=== PATIENT | female | born 1995 | race Caucasian/White ===

== ENCOUNTER 2021-02-09 19:42 | Outpatient (CLI) | payer BC, SELFPAY ==
[2021-02-09 19:59] VITALS: TEMP 36.7
[2021-02-09 20:00] VITALS: BP 116/67; PULSE 72; TEMP 36.6
[2021-02-09 20:44] LABS: ROM Internal Control Test YES-OK TO RESULT pt. (Internal QC)
[2021-02-09 20:46] VITALS: BMI 24.0
[2021-02-09 21:04] LABS: ROM Patient Test Negative (Negative)
--- NOTE | 2021-02-10 10:50 | OB.TRI.HP_ITS ---
History of Present Illness Date of Service: 02/09/21 Was patient seen by the physician?: No Reason For Visit: R/O RUPTURE Date of Service: 02/09/21 Final JUDY: 04/17/21 Final JUDY Source: US <20 weeks Gestational age: 30 Weeks and 4 Days Allergies bee pollen Allergy (Verified 02/09/21 20:49) Hives Laboratory Studies: Laboratory Tests 02/09/21 Range/Units 20:35 Vag Amniotic Fld Detect Negative (Negative) Physical Exam Vitals: Vital Signs Temp Pulse BP 97.8 F 72 116/67 02/09/21 20:00 02/09/21 20:00 02/09/21 20:00 NST - FHR Rate Baby A Baseline: 130 Variability:: Moderate Accelerations:: 15 x 15 Decelerations:: None NST Reactive:: Yes FHR Category:: Category I Uterine Activity:: irritability Impression/Plan 5-year-old 1 para 0 at 30 weeks 3 days for rule out rupture membranes. ROM plus is negative. heart tones are category 1. Tocometer shows some mild irritability. Okay to discharge home with routine instructions and follow- up.
--- NOTE | 2021-10-04 10:18 | PCM.HP.BLA ---
History and Physical Date of Admission: 10/07/21 Pre-Op History and Physical ? HPI: The patient is a 30 year old female presenting for pre-operative visit. She is scheduled for and salpingectomy, for breech, 39 weeks, GDMA1 on 10/07/21. Procedure discussed along with risks, benefits and complications. Other alternatives discussed for management. Consent form signed? Yes. ? ? PAST MEDICAL HISTORY PAST MEDICAL HISTORY Diagnosis Date ? Gestational diabetes mellitus (GDM) in second trimester 07/14/2021 ? depression ? ? Pre-eclampsia ? ? ? PAST SURGICAL HISTORY PAST SURGICAL HISTORY Procedure Laterality Date ? CYST EXCISION Right 04/13/2018 ? gangling ? ? ? CURRENT MEDICATIONS Current Outpatient Medications Medication Sig Dispense Refill ? blood sugar diagnostic test strip 1 Strip four times daily. Use as instructed 120 Strip 9 ? Lancets lancets 1 Each four times daily. Use as instructed 120 Each 9 ? Urine Glucose-Ketones Test (KETO-DIASTIX) strp 1 Strip four times daily. 120 Strip 9 ? aspirin, enteric coated (ASPIRIN, ENTERIC COATED) 81 mg EC tablet Take 81 mg by mouth once daily. ? ? ? doxylamine succinate (UNISOM, DOXYLAMINE, ORAL) Take by mouth. ? ? ? PNV62/FA/OM3/DHA/EPA/FISH OIL ( GUMMY ORAL) Take by mouth as directed. ? ? ? No current facility-administered medications for this visit. ? ? ALLERGIES: Patient has no known allergies. ? PERSONAL HISTORY: SOCIAL HISTORY Social History ? Tobacco Use ? Smoking status: Never Smoker ? Smokeless tobacco: Never Used Vaping Use ? Vaping Use: Never used Substance Use Topics ? Alcohol use: No ? Drug use: No ? FAMILY HISTORY: FAMILY HISTORY FAMILY HISTORY Problem Relation Age of Onset ? No Known Problems Mother ? ? Ischemic Heart Disease Father ? ? 04/2011 ? No Known Problems Sister ? ? other (Other) Sister ? ? Autoimmune Hepavirus Disease ? Macular Degen Maternal Grandmother ? ? Cancer Maternal Grandfather ? ? melanoma, colon cancer ? Aneurysm Paternal Grandmother ? ? Diabetes Paternal Grandmother ? ? Ischemic Heart Disease Paternal Grandfather ? ? Cancer Paternal Grandfather ? ? Hypertension Paternal Grandfather ? ? No Known Problems Son ? ? ? REVIEW OF SYMPTOMS: negative except as noted above PHYSICAL EXAMINATION: ? VITALS: Blood pressure 130/76, weight 179 lb (81.2 kg), last menstrual period 12/30/2020, currently . ? GENERAL: The patient is well nourished, well hydrated in no acute distress. , The patient is oriented to time, place, and person. NECK: full range of motion Abdomen: gravid, non tender. FHR 140s. ? IMPRESSION: 39 weeks, Breech, GDMA1 , desires sterilization ? PLAN: C/S and Bilateral salpingectomy ? Pt has been counseled on risks/benefits and alternatives of surgery including but not limited to anesthesia, bleeding, infection, injury to pelvic structures including bowel, bladder, ureters and vessels. Pt wishes to proceed with surgery at this time. Pt understands salpingectomy is permanent. Cs pre and post op consent signed. ? ? I have reviewed and updated past medical and surgical history, medications and allergies Raven Werner MD ?4:52 PM Routine Office Visit on 09/30/2021 Routine Office Visit on 09/30/2021 Note shared with patient
== END 2021-02-09 21:40 | disposition home or self-care (01) ==
LOC: WPOUT 19:47 → WP 19:51
PROVIDERS: PCP Family Medicine; Visit Provider Obstetrics & Gynecology
DX: O60.03 Preterm labor without delivery, third trimester (principal); Z3A.30 30 weeks gestation of pregnancy
CPT/HCPCS: 59025; 59050; 84112; 99218; G0378

== ENCOUNTER 2021-04-21 03:25 | Inpatient (IN) | payer BC, SELFPAY ==
[2021-04-21] VITALS (92 sets, daily range): BP systolic 91–178; BP diastolic 51–96; PULSE 57–163; RESP 16–18; TEMP 36.5–37.1; O2SAT 83–100; BMI 27.0
[2021-04-21] MEDS: Lactated Ringers 1,000 ML 50 ML IV (04:10)
[2021-04-21 04:26] LABS: Absolute Lymphocyte Count 2.22 X10^3/uL (0.83-4.51); Absolute Neutrophil Count 10.4 X10^3/uL (2.0-7.7); Basophil# 0.04 X10^3/uL; Basophil% 0.3 % (0-1); Eosinophil# 0.04 X10^3/uL; Eosinophils% 0.3 % (0-5); Hematocrit 38.7 % (37-47); Hemoglobin 12.9 g/dL (12.0-15.0); Lymphocyte # 2.22 X10^3/ul (0.83-4.51); Lymphocyte % 16.3 % (19-41); Mean Corp Hgb Conc 33.3 g/dL (32-36); Mean Corpuscular Hgb 29.1 pg (27.0-32.0); Mean Corpuscular Volume 87.2 fL (81-99); Mean Platelet Vol. 11.3 fl (6.2-12.0); Monocyte# 0.78 X10^3/uL; Monocyte% 5.7 % (0-10); NRBC Flagged by Analyzer 0 % (0-5); Neutrophil # 10.37 X10^3/uL (2.7-7.7); Neutrophil % 76.1 % (47-70); Platelet Count 204 K/mm3 (150-450); RBC Distribution Width CV 13.3 % (11.6-14.6); RBC Distribution Width SD 42.2 fl (35.1-43.9); Red Blood Count 4.44 M/mm3 (4.2-5.4); White Blood Count 13.6 K/mm3 (4.4-11.0)
[2021-04-21] MEDS: Lactated Ringers 500 ML 999 ML IV ×2 (05:00→07:16)
--- NOTE | 2021-04-21 05:15 | PCM.HP.OB ---
HPI - General General Date of Admission: 04/21/21 HPI Narrative RAMBO [place], is a 25 F who presents to triage with contractions. Patient stated she has been having contractions since yesterday and they have began to increase in strength and frequency. Denies any loss of fluid or vaginal bleeding. Positive movement. Maternal Data Information JUDY Calculator Estimated Delivery Date Method Current WG Current Estimate 04/17/21 Manual 40w 4d PFSH PFSH Medical History Asthma Asthma Home Medications vit,[id number] 1 tablet PO DAILY 02/09/21 [History Last Taken 04/20/21 09:00] Allergy/AdvReac Type Severity Reaction Status Date / Time bee pollen Allergy Hives Verified 04/21/21 01:05 Surgical History History of surgery Social History Smoking Status: Former smoker History Elective abortions Hx Para 0 Spontaneous abortions Hx # Term Pregnancies Ectopic pregnancies Hx # Pregnancies Multiple births # of living children NST FHR Rate Baby A Baseline: 135 Variability:: Moderate Accelerations:: 15 x 15 Decelerations:: None NST Reactive:: Yes FHR Category:: Category I Uterine Activity:: irregular ROS Eyes Eyes: Denies blurry vision, change in vision or spots in vision ENT HEENT: Denies dizziness or headache(s) Cardiovascular Cardiovascular: Denies abdominal pain, chest pain or dyspnea Respiratory/Chest Respiratory/Chest: Denies cough, dyspnea, shortness of breath at rest or shortness of breath with exertion Gastrointestinal Gastrointestinal: Denies abdominal pain, diarrhea or vomiting Genitourinary Genitourinary: Denies change in urinary stream, difficulty urinating or dysuria Musculoskeletal Musculoskeletal: Reports none Integumentary Integumentary: Denies rash Neurologic Neurologic: Denies dizziness, headache(s), memory loss or weakness Psychiatric Psychiatric: Reports none Vital Signs Vital Signs Vital Signs: 04/21/21 00:56 04/21/21 01:01 04/21/21 01:13 Temperature Temperature Source Pulse Rate 163 H 71 71 Blood Pressure 136/87 H 142/90 H BP Systolic 136 142 BP Diastolic 87 90 Pulse Ox 83 04/21/21 04:17 04/21/21 04:48 04/21/21 05:00 Temperature 97.7 F L Temperature Source Temporal Pulse Rate 75 69 Blood Pressure 150/96 H 146/88 H BP Systolic 150 146 BP Diastolic 96 88 Pulse Ox 98 04/21/21 05:37 04/21/21 05:42 04/21/21 05:43 Temperature Temperature Source Pulse Rate 83 87 90 Blood Pressure 158/81 H BP Systolic 158 BP Diastolic 81 Pulse Ox 100 100 04/21/21 05:46 04/21/21 05:47 04/21/21 05:51 Temperature Temperature Source Pulse Rate 77 78 85 Blood Pressure 149/93 H 141/75 H BP Systolic 149 141 BP Diastolic 93 75 Pulse Ox 100 04/21/21 05:53 04/21/21 05:54 04/21/21 05:58 Temperature Temperature Source Pulse Rate 85 85 78 Blood Pressure 124/59 H BP Systolic 124 BP Diastolic 59 Pulse Ox 100 100 04/21/21 05:59 04/21/21 06:01 04/21/21 06:03 Temperature Temperature Source Pulse Rate 82 77 78 Blood Pressure 114/57 L 128/61 H BP Systolic 114 128 BP Diastolic 57 61 Pulse Ox 100 04/21/21 06:06 04/21/21 06:08 04/21/21 06:11 Temperature Temperature Source Pulse Rate 81 79 77 Blood Pressure 126/60 H 125/60 H BP Systolic 126 125 BP Diastolic 60 60 Pulse Ox 100 04/21/21 06:12 04/21/21 06:13 04/21/21 06:16 Temperature Temperature Source Pulse Rate 75 80 Blood Pressure 128/60 H 122/74 H BP Systolic 128 122 BP Diastolic 60 74 Pulse Ox 100 04/21/21 06:18 04/21/21 06:21 04/21/21 06:23 Temperature Temperature Source Pulse Rate 78 75 77 Blood Pressure 114/58 L BP Systolic 114 BP Diastolic 58 Pulse Ox 100 100 04/21/21 06:26 04/21/21 06:28 04/21/21 06:32 Temperature Temperature Source Pulse Rate 77 80 Blood Pressure 163/75 H 116/67 BP Systolic 163 116 BP Diastolic 75 67 Pulse Ox 100 04/21/21 06:33 04/21/21 06:54 04/21/21 07:14 Temperature Temperature Source Pulse Rate 80 76 69 Blood Pressure 114/70 104/54 L BP Systolic 114 104 BP Diastolic 70 54 Pulse Ox 100 Weight Weight: 167 lb 6.4 oz Body Mass Index (BMI) 27.0 Physical Exam Const alert, oriented x3 and no apparent distress General Appearance: cooperative Orientation / Consciousness: awake Exam Limitations: no limitations HEENT normocephalic Head and Scalp: normal to inspection Eyes General Eye: normal appearance of both eyes Neck full ROM and no lymphadenopathy Lymph Lymphatic: no lymphadenopathy noted Chest inspection of chest normal Resp normal respiratory effort, normal air movement and clear to auscultation bilaterally Effort and Inspection: able to speak in complete sentences and symmetric chest movement Cardio regular rate and regular rhythm GI normal to inspection, nondistended, normoactive bowel sounds Manual OB Exam: dilated 5, effaced 90 and station -2 Back/Spine normal ROM Extremity full ROM and no calf tenderness Skin no rashes or lesions noted General Skin Exam: no breakdown Neuro oriented x3 and CN's II-XII intact bilaterally Psych mental status grossly normal and thought process normal Labs Labs Labs: Blood Type A POSITIVE Antibody Screen NEGATIVE Hct 38.7 % (37-47) Hgb 12.9 g/dL (12.0-15.0) Assessment & Plan (1) 40 weeks gestation of : (2) Spontaneous onset of labor: PLAN: Admit to labor and delivery GBS negative Draw PIH labs due to elevated BP's Routine labs and IV fluids Epidural when indicated Dr. Gunn notified of admission and is collaborating physician
[2021-04-21 05:17] LABS: Amphetamine Urine VISTA NEGATIVE (<1000 ng/mL); Barbiturate Urine VISTA NEGATIVE (< 200 ng/mL); Benzodiazepine Urine VISTA NEGATIVE (< 200 ng/mL); Cocaine Urine VISTA NEGATIVE (< 300 ng/mL); Ecstacy Urine VISTA NEGATIVE (< 500 ng/mL); Methadone Urine VISTA NEGATIVE (< 300 ng/mL); PCP Urine VISTA NEGATIVE (< 25 ng/mL); THC Urine VISTA NEGATIVE (< 50 ng/mL); Vista UDS pH Range 6
[2021-04-21 05:28] LABS: International Normalized Ratio 0.9; Prothrombin Time (Protime)PT. 11.4 SECONDS (11.7-14.9)
[2021-04-21 05:29] LABS: Partial Thromboplast Time 30.1 Seconds (24.1-36.2)
[2021-04-21 05:33] LABS: AST(SGOT) 24 U/L (15-37); Alanine Aminotransfer ALT/SGPT 31 U/L (13-56); Creatinine, Serum 0.89 mg/dL (0.55-1.02); EST Glomerular Filtration Rate 81 mL/min (>60); Est Glom Filt Rate - Afr Amer 98 mL/min (>60); Estimated Creatinine Clearance 88.89 ml/min; Protein, Urine (Random) 13.5 mg/dL (<11.9); Protein:Creat Ratio 231 mg/g CRE (0-200); Uric Acid 6.9 mg/dL (2.6-6.0)
[2021-04-21] MEDS: fentaNYL-bupivacaine (epidural) 100 ML BAG EPIDURAL ×2 (05:54→11:30)
[2021-04-21] MEDS: Oxytocin 30 units/NS 500 ml 30 UNITS/500 ML IV.SOLN IV (09:28)
[2021-04-21] MEDS: Lactated Ringers 1,000 ML 200 ML IV (09:30)
[2021-04-21] MEDS: DiphenhydrAMINE 50 MG/ML Syringe IV (11:17)
[2021-04-21] MEDS: Oxytocin 30 units/NS 500 ml 30 UNITS/500 ML IV.SOLN 334 UNITS IV (13:55)
--- NOTE | 2021-04-21 14:45 | EX.PCM.OBRPT ---
Assessment & Plan (1) (spontaneous vaginal delivery): (2) Laceration, obstetrical, second degree: Maternal Data Information JUDY Calculator Estimated Delivery Date Method Current WG Current Estimate 04/17/21 Manual 40w 4d Vaginal Delivery Maternal Presentation Maternal Presentation: Active Labor Maternal Presentation: Patient is a that presented to unit in spontaneous, active labor. Operative Information Date of Procedure: 04/21/21 Pre-Operative Diagnosis: Spontaneous, active labor Post-Operative Diagnosis: Same, live female Surgery / Procedure Performed: Spontaneous Vaginal Delivery Type of Anesthesia: Epidural Drain: Gallagher to straight drain Estimated Blood Loss: 250 Time of Delivery: 13:53 Findings Description of Procedure: Patient feeling pressure and found to be complete dilation +1 station. Pushing good with contractions. Infant head delivered with minimal maternal effort followed by posterior, anterior shoulder and remainder of . Vigorous female placed on maternal abdomen and was attended to by nursing. Pitocin IV started for active phase of labor. 3 vessel cord clamped and cut by FOB after 2 minute delay. Placenta intact and delivered via Edwards mechanism. Second degree laceration repaired in usual fashion using 3-0 Vicryl Rapide. Hemostasis obtained. Fundus firm 2 below U. EBL 250cc APGARS 9/9. Patient bonding with . Planning on . Dr. Hunter notified of delivery. Presentation: Vertex Amniotic Membrane Rupture Type: Artificial Time of Membrane Rupture: 724 Amniotic Fluid Description: Clear (Terminal meconium at delivery) Placental Delivery Description: Spontaneous Placenta Disposition: [facility] Cord Vessel Description: 3 Vessels Cord Entanglement: None A Gender: Female (1 minute): 9 (5 minute): 9 Delayed Cord Clamping: Yes Post Vaginal Delivery Medications Given After Delivery: IV Pitocin Episiotomy Description: None Laceration: 2nd degree Complication Complications: None
[2021-04-21] MEDS: Acetaminophen 500 MG Tablet 1000 MG PO (15:26)
[2021-04-21] MEDS: 0.9% Saline Lock 10 ML Syringe IV (17:05)
[2021-04-21] MEDS: Naproxen 500 MG Tablet PO (20:08)
[2021-04-21] MEDS: Benzocaine/Lanolin/Aloe Vera 1 SPRAY EACH TOPICAL (20:08)
[2021-04-22] VITALS (8 sets, daily range): BP systolic 118–138; BP diastolic 66–83; PULSE 66–74; RESP 16–18; TEMP 36.4–37.1; O2SAT 98–99
[2021-04-22] MEDS: Acetaminophen 500 MG Tablet 1000 MG PO ×2 (00:10→07:48)
--- NOTE | 2021-04-22 07:20 | PCM.PN.OB ---
Subjective Subjective Patient seen at bedside. Resting with . going good. Ambulating and voiding without difficulty. Mild headache, no visual changes, or SOB, CP. Discussed possible discharge home later today if BP remains stable. Objective Data Objective Data Vital Signs: Vital Signs Temp Pulse Resp BP Pulse Ox 98.7 F 66 16 124/81 H 99 04/22/21 03:50 04/22/21 03:50 04/22/21 03:50 04/22/21 03:50 04/21/21 15:28 Oxygen Delivery Method Room Air Weight: 167 lb 6.4 oz Body Mass Index (BMI) 27.0 Intake & Output: Intake and Output for Last 24 Hours 04/20/21 04/21/21 04/22/21 23:59 23:59 23:59 Intake Total 3381.28 / 3381.28 Output Total 2775 / 3225 450 / 450 Balance 606.28 / 156.28 -450 / -450 Lab / Micro Data Result Diagrams: 04/21/21 04:10 04/21/21 04:10 ROS Eyes Eyes: Denies blurry vision, change in vision or spots in vision ENT HEENT: Denies dizziness or headache(s) Cardiovascular Cardiovascular: Denies abdominal pain, chest pain or dyspnea Respiratory/Chest Respiratory/Chest: Denies cough, dyspnea, shortness of breath at rest or shortness of breath with exertion Gastrointestinal Gastrointestinal: Denies abdominal pain, diarrhea or vomiting Genitourinary Genitourinary: Denies change in urinary stream, difficulty urinating or dysuria Musculoskeletal Musculoskeletal: Reports none Integumentary Integumentary: Denies rash Neurologic Neurologic: Reports headache(s); Denies dizziness, memory loss or weakness Psychiatric Psychiatric: Reports none Physical Exam Const alert and no apparent distress General Appearance: cooperative and comfortable Exam Limitations: no limitations HEENT normocephalic Eyes General Eye: normal appearance of both eyes Neck full ROM General: normal visual inspection Chest Chest: symmetrical chest wall rise Resp normal respiratory effort and normal air movement Effort and Inspection: symmetric chest movement Auscultation: clear to auscultation bilaterally Cardio regular rate and regular rhythm GI normal to inspection, nondistended, normoactive bowel sounds Back/Spine normal ROM Extremity full ROM and no calf tenderness General Extremity: normal exam except as noted Skin no rashes or lesions noted Neuro CN's II-XII intact bilaterally Psych mental status grossly normal Assessment & Plan (1) (spontaneous vaginal delivery): (2) Laceration, obstetrical, second degree: PLAN: PPD 1 Routine care BP monitoring and nurse to report any elevated levels support Anticipate discharge home later today or tomorrow AM
--- NOTE | 2021-04-22 07:43 | NURSING ---
At 0730 pt reports having 3 raised, itchy places on right upper abdomen. CPlotts CNM notified by this RN.
[2021-04-22] MEDS: 0.9% Saline Lock 10 ML Syringe IV (07:48)
[2021-04-22] MEDS: Naproxen 500 MG Tablet PO (11:21)
--- NOTE | 2021-04-22 17:48 | PCM.PROGNOTE ---
Subjective Subjective Doing well per patient and nursing staff. Ambulating and taking PO without difficulty. Voiding and passing flatus. Pain controlled. , services for assistance. Denies headache, visual changes, chest pain, shortness of breath, leg pain or increased bleeding. Lochia normal. Objective Data Objective Data Vital Signs: Vital Signs Temp Pulse Resp BP Pulse Ox 98.1 F 72 16 138/83 H 98 04/22/21 15:22 04/22/21 15:52 04/22/21 15:22 04/22/21 15:52 04/22/21 11:25 Oxygen Delivery Method Room Air Weight: 167 lb 6.4 oz Body Mass Index (BMI) 27.0 Intake & Output: Intake and Output for Last 24 Hours 04/20/21 04/21/21 04/22/21 23:59 23:59 23:59 Intake Total 3381.28 / 3381.28 Output Total 2775 / 3225 450 / 450 Balance 606.28 / 156.28 -450 / -450 Lab / Micro Data Result Diagrams: 04/21/21 04:10 04/21/21 04:10 Physical Exam Const alert and oriented x3 General Appearance: cooperative Orientation / Consciousness: awake, oriented to person, oriented to place and oriented to time Exam Limitations: no limitations HEENT normocephalic Head and Scalp: normal to inspection, normocephalic and atraumatic Face and Sinus: normal facial exam Eyes General Eye: normal appearance of both eyes Neck full ROM Chest Chest: symmetrical chest wall rise Resp normal respiratory effort and normal air movement Auscultation: clear to auscultation bilaterally Cardio regular rate, regular rhythm, S1 normal heart sound, S2 normal heart sound, no murmurs, no rub, no gallops and no clicks GI normal to inspection, nondistended, normoactive bowel sounds and non-tender GI Narrative: fundus firm 2 below U appearance of the vagina normal Bladder / Kidney Exam: no CVA tenderness Back/Spine normal ROM Extremity normal to inspection and full ROM Extremity Narrative: Winnie's negative bilaterally. No edema. +2/4 bilateral patellar, no clonus Skin no rashes or lesions noted Neuro oriented x3, CN's II-XII intact bilaterally and moves all extremities Sensorium / Orientation: awake, alert and oriented to person Motor Exam: clonus absent Deep Tendon Reflexes: Rt Patellar (L4): 2+ and Lt Patellar (L4): 2+ Assessment & Plan Assessment/Plan (1) Laceration, obstetrical, second degree: (2) (spontaneous vaginal delivery): PLAN: 1) Routine PP and instructions 2) Ibuprofen for pain management, will use OTC 3) BP mildly elevated, recommended patient stay, patient informed refusal and asking to be discharged. Reviewed taking BP BID and recording. Preeclampsia signs reviewed and when to call. Will follow up in 4 days in office for blood pressure check. 4) D/C home
--- NOTE | 2021-04-22 17:51 | DS.PCM_ITS ---
Providers Date of Admission: 04/21/21 Primary Care Physician: Dr. Ankit Huber MD Reason For Visit: VAG DELIVERY Diagnosis Discharge Diagnosis (1) Laceration, obstetrical, second degree: Status: Acute Code(s): O70.1 - Second degree perineal laceration during delivery (2) (spontaneous vaginal delivery): Status: Acute Code(s): O80 - Encounter for full-term uncomplicated delivery Medications at Discharge Home Medications vit,[id number] 1 tablet PO DAILY 02/09/21 naproxen 500 mg PO Q8H PRN PRN #0 tab 04/22/21 Weight / BMI Weight Weight: 167 lb 6.4 oz Body Mass Index (BMI) 27.0 ABG / Lab / Microbiology Data Result Diagrams: 04/21/21 04:10 04/21/21 04:10 D/C Instructions Discharge Diet: No restrictions Discharge Activity: May Drive, May Shower and May Take a Tub Bath May resume sexual activity in: 6 weeks Weight Bearing Status: Full weight bearing Lifting Restricted to (Lbs): 50 Call your doctor if your incision/area has: Sudden Increased Bleeding, Increased Pain/ Swelling, Increased Redness and Foul Smelling Discharge Call your doctor if you observe: Fever of 101 or Higher, Inability to urinate, Inability to have a bowel movement, Using more than 1 pad per hour, Shortness of breath, Dizziness, Fainting spells, Chest pain, Increased palpitations (irregular heartbeat), Calf discomfort and Uncontrolled pain Suture Line Care: Avoid Pulling/Pushing Additional Instructions: Take blood pressure twice a day, sitting with legs flat on floor after 15 minutes of rest. Record blood pressure. Follow up in 4 days in office. If blood pressure is increasing or blood pressure is 160/110 (either number elevated), please call office during office hours or [facility] after hours. Call if any headache, visual changes, pain in the abdomen on the right side or any concerns. Please Follow Up With: Lucille Higuera CNM Meaningful Use Info Meaningful Use Diagnoses (Choose all that apply): None applicable Discharge Plan Admission Admit Date/Time: 04/21/21 03:25 Primary Reason for Your Visit: vaginal delivery Attending Provider: Arianna Hernandez Primary Care Provider: Ankit Huber Instructions Patient Instructions: After a Vaginal , Understanding Preeclampsia, Breast Care After , : Caring for Yourself Discharge Orders/Prescriptions Prescriptions: New naproxen 500 mg Tablet 500 mg PO Q8H PRN PRN (Reason: Pain Score 1-3) Qty: 0 RF: 0 Continued vit,[id number] 1 TABLET tablet 1 tablet PO DAILY RF: 0 Referrals / Follow Up: Ankit Huber MD [Primary Care Provider] - Arianna Hernandez CNM [Certified Nurse Coding Support Specialist] - (follow up 04/26/21 for blood pressure check, follow up in 2 weeks for virtual visit, follow up in 6 weeks for inperson visit) Disposition Disposition (needs filled in before D/C Order can be placed): Home, Self Care
== END 2021-04-22 18:20 | disposition home or self-care (01) | DRG 807 ==
LOC: WPOUT 03:26 → WP 03:26
PROVIDERS: Admitting Provider Advanced Practice Midwife; PCP Family Medicine; Visit Provider Advanced Practice Midwife
DX: O70.1 Second degree perineal laceration during delivery (principal); Z37.0 Single live birth; O77.0 Labor and delivery complicated by meconium in amniotic fluid; J45.909 Unspecified asthma, uncomplicated; Z87.891 Personal history of nicotine dependence; Z3A.40 40 weeks gestation of pregnancy
CPT/HCPCS: 59025; 59050; 80307; 82565; 82570; 84156; 84450; 84460; 84550; 85025; 85610; 85730; 86850; 86900; 86901; 99218; J7120; A4216; G0378

== ENCOUNTER → 2023-05-15 | Outpatient (CLI) | payer BC, SELFPAY ==
[2023-05-15 17:04] LABS: Absolute Lymphocyte Count 2.84 X10^3/uL (0.83-4.51); Absolute Neutrophil Count 7.8 X10^3/uL (2.0-7.7); Basophil# 0.03 X10^3/uL; Basophil% 0.3 % (0-1); Eosinophil# 0.08 X10^3/uL; Eosinophils% 0.7 % (0-5); Hemoglobin 12.2 g/dL (12.0-15.0); Lymphocyte # 2.84 X10^3/ul (0.83-4.51); Lymphocyte % 25.1 % (19-41); Mean Corp Hgb Conc 33.9 g/dL (32-36); Mean Corpuscular Hgb 29.5 pg (27.0-32.0); Mean Platelet Vol. 9.3 fl (6.2-12.0); Monocyte# 0.52 X10^3/uL; Monocyte% 4.6 % (0-10); NRBC Flagged by Analyzer 0 % (0-5); Neutrophil # 7.77 X10^3/uL (2.7-7.7); Neutrophil % 68.8 % (47-70); Platelet Count 252 K/mm3 (150-450); RBC Distribution Width CV 12.7 % (11.6-14.6); RBC Distribution Width SD 40.7 fl (35.1-43.9); Red Blood Count 4.14 M/mm3 (4.2-5.4); White Blood Count 11.3 K/mm3 (4.4-11.0)
[2023-05-15 18:21] LABS: HIV - WCH Non-Reactive (Nonreactive); Hepatitis B Surface Antigen Non-Reactive (Nonreactive); Hepatitis C Antibody Non-Reactive (Nonreactive); Rubella IgG Reactive (Nonreactive); Syphilis Antibodies Non-reactive
[2023-05-17 08:08] LABS: V-Zoster IgG (Immunity) 1236 index (Immune >165)
== END | disposition home or self-care (01) ==
PROVIDERS: PCP Family Medicine; Visit Provider Student in an Organized Health Care Education/Training Program
DX: Z34.81 Encounter for supervision of other normal pregnancy, first trimester (principal)
CPT/HCPCS: 36415; 85025; 86703; 86762; 86780; 86787; 86803; 86850; 86900; 86901; 87086; 87340

== ENCOUNTER → 2023-05-18 | Outpatient (CLI) | payer BC, SELFPAY | END | disposition home or self-care (01) | PROVIDERS: PCP Family Medicine; Visit Provider Nurse Practitioner Women's Health | DX: Z34.81 Encounter for supervision of other normal pregnancy, first trimester (principal) ==

== ENCOUNTER → 2023-06-09 | Outpatient (CLI) | payer BC, SELFPAY ==
[2023-06-13 11:09] LABS: HPV APTIMA, High Risk Negative (Negative)
== END | disposition home or self-care (01) ==
PROVIDERS: PCP Family Medicine; Visit Provider Obstetrics & Gynecology
DX: Z12.4 Encounter for screening for malignant neoplasm of cervix (principal)
CPT/HCPCS: 87624; 88175; G0145

== ENCOUNTER → 2023-07-10 | Outpatient (CLI) | payer BC, SELFPAY ==
--- NOTE | 2023-07-10 15:20 | US_ITS ---
STUDY: SECOND AND THIRD TRIMESTER OBSTETRICAL ULTRASOUND REASON FOR EXAM: Female, 27 years old anatomy LMP: 02/17/2023 TECHNIQUE: Transabdominal TECHNICAL QUALITY: Adequate. PRIOR ULTRASOUND: None. FINDINGS: There is a single intrauterine fetus. The fetus is in a variable presentation. There is demonstrated cardiac activity with a heart rate of 160 bpm. There is a normal amniotic fluid volume. The largest amniotic fluid pocket measures 4.1. The placenta is posterior in location and is not low lying. There are Grade 2 placental changes. The cervix measures 4.3 cm in length. The adnexal regions are not visualized. BIOMETRY: BPD: 4.5: 19 weeks, 5 days HC: 17.7: 20 weeks, 1 days AC: 16.0: 21 weeks, 1 days FL: 3.0: 19 weeks, 1 days CI: FL/BPD: FL/HC: FL/AC: HC/AC: age by current US: 19 weeks, 6 days. JUDY by current US: 11/28/2023. Estimated weight: 337 grams, +/- 51 grams, 31 %. age by prior US: weeks, days. JUDY by prior US: . Age by LMP: 20 weeks, 3 days. JUDY by LMP: 11/24/2023. ANATOMY: Gender: Male Cranium: Normal lateral ventricles. Normal choroid plexus. Normal cerebellum. Normal cisterna magna. Normal face, nose and lips. Chest: Normal 4-chamber heart. Abdomen/Pelvis: Normal diaphragm. Normal stomach. Normal abdominal wall. Normal cord insertion. Normal 3 vessel cord. Normal kidneys. Normal bladder. Spine: Normal cervical spine. Normal thoracic spine. Normal lumbar spine. Normal sacrum. Extremities: Normal bilateral upper extremities. Normal bilateral lower extremities. IMPRESSION: Single live fetus in a variable presentation. No demonstrated anatomic abnormality. Placenta is grade 2 and is not low-lying. Cervix is closed. age by current US: 19 weeks, 6 days. JUDY by current US: 11/28/2023. Estimated weight: 337 grams, +/- 51 grams, 31 %. Electronically Signed: Fransisco Estrella MD at 18:39 EDT , STUDY: SECOND AND THIRD TRIMESTER OBSTETRICAL ULTRASOUND REASON FOR EXAM: Female, 27 years old anatomy LMP: 02/17/2023 TECHNIQUE: Transabdominal TECHNICAL QUALITY: Adequate. PRIOR ULTRASOUND: None. FINDINGS: There is a single intrauterine fetus. The fetus is in a variable presentation. There is demonstrated cardiac activity with a heart rate of 160 bpm. There is a normal amniotic fluid volume. The largest amniotic fluid pocket measures 4.1. The placenta is posterior in location and is not low lying. There are Grade 2 placental changes. The cervix measures 4.3 cm in length. The adnexal regions are not visualized. BIOMETRY: BPD: 4.5: 19 weeks, 5 days HC: 17.7: 20 weeks, 1 days AC: 16.0: 21 weeks, 1 days FL: 3.0: 19 weeks, 1 days CI: FL/BPD: FL/HC: FL/AC: HC/AC: age by current US: 19 weeks, 6 days. JUDY by current US: 11/28/2023. Estimated weight: 337 grams, +/- 51 grams, 31 %. age by prior US: weeks, days. JUDY by prior US: . Age by LMP: 20 weeks, 3 days. JUDY by LMP: 11/24/2023. ANATOMY: Gender: Male Cranium: Normal lateral ventricles. Normal choroid plexus. Normal cerebellum. Normal cisterna magna. Normal face, nose and lips. Chest: Normal 4-chamber heart. Abdomen/Pelvis: Normal diaphragm. Normal stomach. Normal abdominal wall. Normal cord insertion. Normal 3 vessel cord. Normal kidneys. Normal bladder. Spine: Normal cervical spine. Normal thoracic spine. Normal lumbar spine. Normal sacrum. Extremities: Normal bilateral upper extremities. Normal bilateral lower extremities. US/OB Anatomy w/ Transvaginal
== END | disposition home or self-care (01) ==
PROVIDERS: PCP Family Medicine; Referring Provider Obstetrics & Gynecology; Visit Provider Obstetrics & Gynecology
DX: Z34.90 Encounter for supervision of normal pregnancy, unspecified, unspecified trimester (principal); Z3A.00 Weeks of gestation of pregnancy not specified
CPT/HCPCS: 76805; 76817

== ENCOUNTER → 2023-08-28 | Outpatient (CLI) | payer BC, SELFPAY ==
[2023-08-28 09:43] LABS: Absolute Neutrophil Count 6.1 X10^3/uL (2.0-7.7); Basophil# 0.02 X10^3/uL; Basophil% 0.2 % (0-1); Eosinophil# 0.04 X10^3/uL; Eosinophils% 0.5 % (0-5); Hematocrit 36.3 % (37-47); Hemoglobin 11.7 g/dL (12.0-15.0); Lymphocyte % 19.8 % (19-41); Mean Corp Hgb Conc 32.2 g/dL (32-36); Mean Corpuscular Hgb 29.1 pg (27.0-32.0); Mean Corpuscular Volume 90.3 fL (81-99); Mean Platelet Vol. 9.6 fl (6.2-12.0); Monocyte# 0.28 X10^3/uL; Monocyte% 3.5 % (0-10); NRBC Flagged by Analyzer 0 % (0-5); Neutrophil # 6.05 X10^3/uL (2.7-7.7); Neutrophil % 74.9 % (47-70); Platelet Count 214 K/mm3 (150-450); RBC Distribution Width CV 12.9 % (11.6-14.6); RBC Distribution Width SD 42.4 fl (35.1-43.9); Red Blood Count 4.02 M/mm3 (4.2-5.4); White Blood Count 8.1 K/mm3 (4.4-11.0)
[2023-08-28 10:42] LABS: Glucose Challenge Gest 1H 50g 93 mg/dL (70-140)
[2023-08-28 11:05] LABS: HIV - WCH Non-Reactive (Nonreactive); Syphilis Antibodies Non-reactive
== END | disposition home or self-care (01) ==
LOC: LAB 08:21
PROVIDERS: PCP Family Medicine; Referring Provider Obstetrics & Gynecology; Visit Provider Obstetrics & Gynecology
DX: Z34.90 Encounter for supervision of normal pregnancy, unspecified, unspecified trimester (principal); Z3A.00 Weeks of gestation of pregnancy not specified
CPT/HCPCS: 36415; 82950; 85025; 86703; 86780

== ENCOUNTER → 2023-10-21 | Outpatient (CLI) | payer BC, SELFPAY ==
--- NOTE | 2023-10-21 12:33 | US_ITS ---
STUDY: SECOND AND THIRD TRIMESTER OBSTETRICAL ULTRASOUND - LIMITED REASON FOR EXAM: Female, 28 years old uterine size less than dates PRIOR ULTRASOUND: July 10, 2023 . TECHNIQUE: Transabdominal ultrasound TECHNICAL QUALITY: Adequate. FINDINGS: Examination submitted 10/24/2023 for interpretation. Images reveal a single live intrauterine gestation in cephalic positioning. Posterior placenta noted. Grade 1. Biparietal diameter 8.7 cm corresponding to 35 weeks 1 day. Head circumference 30.3 cm equals 33 weeks 4 days. Abdominal circumference 29.6 cm equals 33 weeks 4 days. Femur length 6.4 cm equals 33 weeks 1 day. Average ultrasound age by ultrasound 33 weeks 3 days. Cardiac activity 136 bpm. Estimated weight 2282 g +/- 342 g. Anatomy limited by gestational age. JAYLAN 20.7 cm. Cervix not well seen. Ovaries are not identified. US/OB Limited With Biometrics IMPRESSION: Single live intrauterine gestation in cephalic position with average ultrasound age 33 weeks and 3 days by biometric measurements. Electronically Signed: Khoa Nye MD at 20:53 EST ,
== END | disposition home or self-care (01) ==
PROVIDERS: PCP Family Medicine; Referring Provider Advanced Practice Midwife; Visit Provider Advanced Practice Midwife
DX: O26.849 Uterine size-date discrepancy, unspecified trimester (principal); Z3A.00 Weeks of gestation of pregnancy not specified
CPT/HCPCS: 76816

== ENCOUNTER → 2023-10-27 | Outpatient (CLI) | payer BC, SELFPAY ==
--- OUTSIDE RECORDS SUMMARY | 2023-10-27 17:39 | XMS RPT_ITS | CCD ---
Author Name Unknown Address [address] [place] [address] Organization [facility] Care Team Providers Care Piano Case Maker Name Role Phone HEATHER, JACQUE Hunter Admitting Unavailable HEATHER, JACQUE Hunter Attending Unavailable HEATHER, JACQUE Hunter Primary Care Unavailable HEATHER, JACQUE Hunter Admitting Unavailable HEATHER, JACQUE Hunter Attending Unavailable HEATHER, JACQUE Hunter Primary Care Unavailable Heath WILCOX, Derek Hernandez Primary Care Provider Yamel WALTER, Yulia Zhang Unavailable Ollie WILCOX, Natalia Hunter Unavailable Mayo WILCOX, Ankit Oakes Unavailable Erik RAW SAMPLER, Faith Unavailable Vess RAW SAMPLER, Neandressa L Unavailable Unavailable Mamadou RAW SAMPLER, Sandra Hunter Unavailable Unavailable Teodoro SHERWOOD, Teresa Mccormack Unavailable Unavailable Vargas RAW SAMPLER, Lexie Ortega Unavailable Unavailab sean Medina RAW SAMPLER, Crystal Unavailable Unavailguillermo e Desmond WALTER, Alexa Cantu Unavailable Fili RAW SAMPLER, Pricilla Lee Unavailable Unavaila ble Bezty SHERWOOD, Yulia Reynolds Unavailable Unavaila ble Unavailable Unavailable Allergies Allergy Classification Reported Allergen(s) Allergy Type Date of Onset Reaction(s) Facility (5 sources) Bees Allergy to substance 7 Other: See Comments [facility] Work Phone: Medications Current Medications Medication Drug Class(es) Dates Sig (Normalized) Sig (Original) [id number] 200 actuat albuterol 0.09 mg/actuat metered dose inhaler (1 source) beta2-Adrenergic Agonist Start: 12-10-2015 take 2 puff(s) by inhalation every four to six hours PROAIR HFA, 108 (90 Base)MCG/ACT (Inhalation Aerosol Solution) ; 2 (two) puffs Every 4-6 hours for 0 days Quantity: 1 {Inhaler} Refills: 3 Ordered: 10-Dec-2015 SABA Logan Start: 10-Dec-2015 [id number] 0.3 ml EPINEPHrine 1 mg/ml auto-injector (6 sources) alpha-Adrenergic Agonist, beta-Adrenergic Agonist, Catecholamine Start: 08-04-2017 EPINEPHrine 0.3 MG/0.3ML Injection Solution Auto-injector ; 1 (one) Soln Auto-inj Soln Auto-inj at tiime of sting for 0 days Quantity: 1 {Syringe} Refills: 3 Ordered: 04-Aug-2017 PRESLEY Valerio Start: 04-Aug-2017 Completed/Discontinued Medications Medication Drug Class(es) Dates Sig (Normalized) Sig (Original) amoxicillin 875 mg / clavulanate 125 mg oral tablet (1 source) Penicillin-class Antibacterial Start: 12-18-2014 End: 12-28-2014 take 1 tablet by mouth twice daily at mealtime AUGMENTIN, 875-125MG (Oral Tablet) ; 1 Tab two times daily for 10 days Quantity: 20 {Tablet} Refills: 0 Ordered: 18-Dec-2014 SABA Montesinos Start: 18-Dec-2014 End: 28-Dec-2014 Status: Inactive Comments: Take with food Problems Active Problems Problem Classification Problem Date Documented Da te Episodic/Chronic Abdominal pain (9 sources) Flank pain; Translations: [Unspecified abdominal pain] 12-10-2015 Episodic Administrative/social admission (3 sources) Issue of repeat prescriptions 06-18-2015 Episodic Allergic reactions (6 sources) Allergy to insect protein; Translations: [Other insect allergy status] 08-04-2017 Episodic Asthma (3 sources) Asthma; Translations: [Unspecified asthma, uncomplicated] 12-10-2015 Chronic Chronic obstructive pulmonary disease and bronchiectasis (2 sources) Bronchitis; Translations: [Bronchitis, not specified as acute or chronic] 12-10-2015 Episodic Fever of unknown origin (3 sources) Fever, unspecified; Translations: [Fever, unspecified] Onset: 05-03-2020 Episodic Fluid and electrolyte disorders (2 sources) Dehydration; Translations: [Dehydration] 03-20-2015 Episodic Gastrointestinal hemorrhage (2 sources) Hemorrhage of rectum and anus 12-10-2015 Episodic Headache; including migraine (1 source) Headache; Translations: [Headache] Onset: 05-03-2020 Episodic Immunizations and screening for infectious disease (1 source) Patient encounter status; Translations: [Encounter for screening for human papillomavirus (HPV)] Episodic Lymphadenitis (2 sources) Lymphadenopathy; Translations: [Generalized enlarged lymph nodes] 12-10-2015 Episodic Malaise and fatigue (2 sources) Fatigue; Translations: [Other fatigue] 09-13-2018 Episodic Menstrual disorders (4 sources) Menstrual period late; Translations: [Irregular menstruation, unspecified] 05-15-2017 Chronic Mood disorders (9 sources) Depressive disorder; Translations: [Depressive disorder, not elsewhere classified] 12-10-2015 Chronic Noninfectious gastroenteritis (2 sources) Other and unspecified noninfectious gastroenteritis and colitis 03-20-2015 Episodic Nonmalignant breast conditions (3 sources) Fibroadenosis of right breast; Translations: [Fibroadenosis of right breast] Chronic Nonmalignant breast conditions (4 sources) Breast lump; Translations: [Unspecified lump in breast] 12-10-2015 Episodic Other aftercare (3 sources) Long-term (current) use of other medications 03-20-2015 Episodic Other complications of (2 sources) Symptomatic disorders in ; Translations: [ related conditions, unspecified, unspecified trimester] 12-10-2015 Episodic Other gastrointestinal disorders (1 source) Diarrhea, unspecified; Translations: [Diarrhea, unspecified] Onset: 05-03-2020 Episodic Other gastrointestinal disorders (2 sources) Loose stool; Translations: [Other fecal abnormalities] 09-13-2018 Episodic Other lower respiratory disease (1 source) Cough; Translations: [Cough] Onset: 05-03-2020 Episodic Other non-traumatic joint disorders (2 sources) Hip pain; Translations: [Pain in right hip] 12-10-2015 Episodic Other screening for suspected conditions (not mental disorders or infectious disease) (1 source) Cancer cervix screening status; Translations: [Encounter for screening for malignant neoplasm of cervix] Episodic Other upper respiratory infections (7 sources) Acute sinusitis, unspecified; Translations: [Sore throat symptom] 03-20-2015 Episodic Spondylosis; intervertebral disc disorders; other back problems (1 source) Chronic low back pain; Translations: [Chronic bilateral low back pain without sciatica] Episodic Unclassified (1 source) Well adult female - The patient feels well with no complaints, has good energy level and is sleeping well. The first day of the last menstrual period was : (03/27/14 states her period hasn't been normal since she ran out of 2 months ago - they were normal while on the OCP though). The current method of contraception is: condom-male (sometimes). The patient has a balanced diet and takes no supplemental vitamins & iron. The patient does not exercise. The patient sleeps 7 hours per night. Note for Well adult female : Is sexually active. Weight is up 12 pounds in the past year. Allergies and asthma have been worse since she is working outside and with the season change. Has been having chest tightness daily. Uses albuterol inhaler with minimal improvement. Not taking depression medication daily - feels she is ready to be off of it. 04-07-2014 Unclassified (1 source) Well adult female - The patient feels well with no complaints, has good energy level and is sleeping poorly. The first day of the last menstrual period was : (last week; normal on OCP). The current method of contraception is: oral contraceptives (doing well on them; no side effects noted). Patient has not had a cholesterol screening. There has been no glucose screening. Last Tetanus booster: Date: (06/06). The patient has a balanced diet and takes no supplemental vitamins & iron. The patient exercises daily. The patient sleeps 8 hours per night. Note for Well adult female : Currently in her 1st year of [employer] schooling. Says that her anxiety has worsened over the past couple of months. Was doing well but has started to have panic attacks about once a week. Under more stress since has moved to [place] for school. Would like to have her dose of prozac increased. Sexually active - sometimes uses condoms. 11-12-2012 Unclassified (1 source) Follow Up for Multiple Chronic Conditions - The patient is here for follow-up of depression. The patient always takes the prescribed medications. No side effects noted. The patient engages in regular exercise program 1-3 times per week. The patient states that mood is unchanged (mom states that her outbursts have been less dramatic, so possibly a mild improvement....). 03-03-2012 Unclassified (1 source) Well Adult, female - The patient feels well with minor complaints (1) irregular periods 2) c/o insomnia 3) headaches). Most recent Pap smear: : (never). The first day of the last menstrual period was : (11/24/11). The patient is not using any method of contraception at this time. Date of most recent influenza vaccine : (2010). Last Tetanus booster: unknown/unsure. The patient has a balanced diet. Patient exercises 3 - 4 times per week. Patient sleeps 6 hours per night. Note for Well Adult, female : she has been sexually active in the past - as had 2 partners, condoms always used 12-04-2011 Viral infection (2 sources) Infectious mononucleosis 03-20-2015 Episodic Past or Other Problems Problem Classification Problem Date Documented Date Episodic/Chronic Screening and history of mental health and substance abuse codes (5 sources) Stopped smoking; Translations: [Personal history of nicotine dependence] Onset: 0 09-06-2020 Episodic Unclassified (1 source) Abdominal pain - The onset of the abdominal pain has been gradual and has been occurring in an intermittent pattern for 3 months. The course has been recurrent. The pain is described as a moderate sharp pain and dull ache. The pain is located in the periumbilical area and radiates to the back (left), left flank and epigastrium. The symptoms have no aggravating factors but are relieved by eating (at times). The symptoms have been associated with nausea and vomiting, while the symptoms have not been associated with anorexia, bloody stools, constipation, diarrhea, dysuria, fever or hematemesis. Note for Abdominal pain : Pt.notes very soft stool x several months, which is unusual for her. No change in stool color and no blood noted. Pt. c/o headaches, abdominal pain raditaing to epigatrium and chest at times. No c/o dysuria.She smokes 6 cigarettes dailySHe admits to drnking heavily on the weekends only - CAGE questions asked and she is negative 09-13-2018 Unclassified (1 source) Cold Symptoms - Symptoms include ear pain (left ear), scratchy throat, productive cough, wheezing (and chest hurts. PO 98%. She will also get lightheaded. Some SOB. Using inhaler which helps.), general malaise and headache, but do not include sneezing, nasal congestion, runny nose, fever or facial pain. The onset was gradual 3 day(s) ago. The patient describes this as mild and unchanged. The patient is not currently being treated for this problem. Risk factors do not include smoking. The patient has been exposed to an individual with a cough (4 other people at work have been diagnosed with bronchitis). 12-10-2015 Unclassified (1 source) Hip pain - The onset of the hip pain has been gradual following no specific incident and has been occurring in a persistent pattern for 1 year. The course has been gradually worsening. The hip pain is described as being a moderate dull aching (sharp pain at times) located in both hips (left > right). The hip pain radiates to the down the entire leg (to calf). Relieving factors include medication (ibuprofen). The symptoms have been associated with catching and locking, while the symptoms have not been associated with limping, stiffness, weakness, numbness, tingling, swelling in the leg or trauma. There have been no previous diagnostic tests. Note for Hip pain : Pt. notes increased pain when exercising with leg lifts. Pt. notes, its difficult to get my leg down sometimes d/t pain. 10-24-2015 Unclassified (1 source) Cold Symptoms - Symptoms include sore throat, fever (low grade) and chills, but do not include sneezing, nasal congestion, runny nose, dry cough, productive cough, general malaise or headache. The onset was sudden 1 day(s) ago. The symptoms occur constantly. The patient describes this as moderate in severity and unchanged. The patient is not currently being treated for this problem. The patient has been exposed to an individual with similar symptoms (someone at work with tonsilitis). Medical history includes seasonal allergies (occasionally uses zyrtec), but patient denies history of recurrent sinusitis or recurrent strep pharyngitis. 07-17-2015 Unclassified (1 source) Well Adult, female - The patient feels well with minor complaints (Pt here for her annual pap and physical. She is currently on Tri-Sprintec. Says has always tolerated it well up until this last pack. LMP was about 03/19/15. Since then she has noticed that her breasts are sore and tender and have grown in size. She will get some abdominal cramping but no discharge or bleeding. Should start period this next weekend. Has been taking med at same time daily and hasn't missed any pills. No change in partners since last exam 1 year ago (G/C done at that time). ). The current method of contraception is: oral contraceptives. The patient has a balanced diet and takes no supplemental vitamins & iron. The patient exercises daily. The patient sleeps 7 hours per night. 04-11-2015 Unclassified (1 source) Cold Symptoms - Symptoms include nasal congestion, runny nose, ear pain, sore throat, dry cough, fever and headache. The onset was gradual 1 week(s) ago. The symptoms occur constantly. The patient describes this as moderate in severity and unchanged. Current treatment includes allergy medications. Medical history includes seasonal allergies, recurrent sinusitis and asthma, but patient denies history of recurrent strep pharyngitis, tonsillectomy or recurrent ear infections. Note for Upper respiratory infection : Feels asthma has flared uo. 03-20-2015 Unclassified (1 source) Cold Symptoms - Symptoms include nasal congestion, runny nose, purulent discharge, ear pain, sore throat, dry cough, fever (initially), general malaise, headache and facial pain, but do not include sneezing. The onset was gradual. The symptoms occur constantly. The patient describes this as moderate in severity and worsening. The patient is not currently being treated for this problem. Risk factors do not include smoking. The patient has been exposed to an individual with similar symptoms. Patient denies history of asthma or tonsillectomy. 12-18-2014 Unclassified (1 source) Cold Symptoms - Symptoms include ear pain, ear fullness, sore throat, fever (subjective), general malaise and headache, but do not include nasal congestion, runny nose or dry cough. The onset was sudden 1 day(s) ago. The symptoms occur constantly. The patient describes this as moderate in severity and worsening. The patient is not currently being treated for this problem. Risk factors do not include child in daycare or smoking. The patient has been exposed to an individual with similar symptoms and an individual with strep (coworker). 08-03-2014 Unclassified (1 source) Bloody stools - The onset of the bloody stools has been acute , and they have been occurring in a persistent pattern for 3 weeks (started after she hadnt had a BM in 5 days). The course has been constant. The bloody stools are characterized as blood mixed in stools, blood streaking of toilet paper and bloody toilet bowl water. The symptoms have been associated with abdominal pain (occasional) and hard stools (does not have BM daily) but have not been associated with dizziness, easy bruising, family history of bleeding, heartburn, nausea, painful bowel movements or diarrhea. 03-22-2013 Unclassified (1 source) Cold Symptoms - Symptoms include nasal congestion, ear fullness (and itching), sore throat, general malaise and headache, but do not include sneezing, runny nose, ear pain, dry cough, fever or chills. The onset was gradual 1 week(s) ago. The symptoms occur constantly. The patient describes this as moderate in severity and unchanged. Current treatment includes NSAIDs. Risk factors do not include smoking. The patient has been exposed to an individual with an upper respiratory infection. Medical history includes tonsillectomy, but patient denies history of seasonal allergies, recurrent sinusitis, recurrent strep pharyngitis, asthma or recurrent ear infections. Note for Upper respiratory infection : Pt c/o chest discomfort and episodes of s.o.b. No c/o cough. 09-09-2012 Unclassified (1 source) Chest pain - The onset of the pain has been acute and has been occurring in a recurrent pattern for 2 days. The pain is described as a moderate sharp pain and stabbing sensation. The pain is described as being located in the left chest and does not radiate. There are no precipitating factors. The symptoms are aggravated by coughing, deep breathing and local pressure (when she presses around on it). The symptoms are relieved by rest. The symptoms have been associated with headache, nausea and vomiting, but have not been associated with cough, dizziness, diaphoresis, dyspnea, emotional stress, fever, neck pain, palpitations, shoulder pain or syncope. There have been no previous evaluations. There is a family history of coronary artery disease (paternal and maternal grandfathers) and hypertension (father). There is a history of use of oral contraceptives and bronchodilators (prn- asthma). 08-30-2012 Unclassified (1 source) Gastroenteritis - The history today is reported by the patient and the patient's mother. The diarrhea has been watery (has fully resolved since last night). There is no known event that preceded symptom onset. The patient is not currently being treated for this problem. There is no history of suspicious food ingestion or group environment. Onset was sudden 2 day(s) ago. Symptoms include diarrhea, nausea and abdominal pain (umbilical), while symptoms do not include fever, vomiting, decreased appetite or decreased fluid intake. The symptoms are described as moderate in severity and improving (statesthat diarrhea itself has improved, however mild abdominal pain remains and she has no appetite - refusing to drink as well). Associated symptoms include decreased urination, dry mouth, fatigue, weight loss and headache, but do not include runny nose, nasal congestion, ear pain, sore throat or cough. 04-21-2012 Unclassified (1 source) Rash - The onset of the rash has been acute and has been occurring in a persistent pattern for 6 days. The course has been increasing. The rash is characterized as red. The rash was first seen on the upper extremity. It spread to the face. There has been associated itching. Note for Rash : reviewed by [facility] 04-12-2012 Unclassified (1 source) Sore Throat - The onset of the sore throat has been gradual and has been occurring for 4 days. The course has been worsening (Ptsmain complaint is that her glands on right side of neck are swollen. Hurts to swallow. No fever. Pt also complains that her left side of abdomen hurts once in awhile and she has had some congestion. Pt is working for [employer] and putting long hours and is exhausted when she gets home.). Note for Sore Throat : Not using any OTC's. reviewed by [facility] 04-05-2012 Unclassified (1 source) concerns and questions - Pt. here to talk to [facility]. Pt. and mother did not offer any specific reason for visit. Mother states well, she has issues Mom states that Kwame has trouble sleeping, is easy to anger, and has frequent moods swings; when i ask kwame what she does for fun she answers nothing ; when asked what makes her happy, she answers nothing SHe has dropped out of [employer] this year; planning on attending [employer].... 02-04-2012 Unclassified (1 source) Abdominal pain - The onset of the pain has been acute and has been occurring in an intermittent pattern for 1 week. The course has been recurrent. The pain is described as a moderate burning and sharp pain. The pain is located in the left upper quadrant and left lower quadrant and does not radiate. The symptoms have no aggravating factors but have no relieving factors. The symptoms have been associated with heartburn (not worse after eating, but does seem worse when lying down...this is different that pain in left flank), while the symptoms have not been associated with bloating, constipation, diarrhea, dysuria, fever, nausea, vaginal bleeding (LMP was 10/30/10) or vomiting. 11-17-2011 Unclassified (1 source) Cold Symptoms - Symptoms include sneezing, ear pain (right ear), sore throat, dry cough and headache, but do not include nasal congestion, fever or facial pain. The onset was gradual 2 week(s) ago. The symptoms occur constantly. The patient describes this as moderate in severity and worsening. Current treatment includes non-prescription cold medication. The patient has been exposed to an individual with similar symptoms. Medical History includes asthma (exercise induced - has an albuterol inhaler but hasn't needed to use it recently) and tonsillectomyPatient denies history of seasonal allergies. Note for Cold Symptoms : Itchy eyes. No wheezing. Admits to feeling more tired than usual and sleeping more. Ill contacts at school. 07-24-2011 NEGATED: Highlighted row has been ruled out!Unclassified (1 source) No Known / History Onset: 4 04-11-2015 Results Test Name Value Interpretation Reference Range Facil ity Vital Signs Date Time Vital Sign Value Performing Clinician Neptali [email or web address] 05-13-2022 13:00-0400 Body weight 53.52 kg Mariela Older CLINIC CHARGE NURSE.TRUPTI Work Phone: [facility] 05-13-2022 13:00-0400 Diastolic blood pressure 76 mm[Hg] Mariela Older CLINIC CHARGE NURSE.TRUPTI Work Phone: [facility] 05-13-2022 13:00-0400 Heart rate 74 /min Mariela Older CLINIC CHARGE NURSE.SOFTWARE 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 DEVELOPER Work Phone: [facility] 05-13-2022 13:00-0400 Respiratory rate 14 /min Mariela Older CLINIC CHARGE NURSE.SOFTWARE 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 DEVELOPER Work Phone: [facility] 05-13-2022 13:00-0400 Systolic blood pressure 132 mm[Hg] Mariela Older CLINIC CHARGE NURSE.SOFTWARE 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 DEVELOPER Work Phone: [facility] 03-04-2022 09:35-0400 Body height 169.5 cm Yamilet Fabian CLINIC CHARGE NURSE.SOFTWARE 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 DEVELOPER Work Phone: [facility] 03-04-2022 09:35-0400 Body weight 56.88 kg Yamilet Fabian CLINIC CHARGE NURSE.SOFTWARE 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 DEVELOPER Work Phone: [facility] 03-04-2022 09:35-0400 Diastolic blood pressure 60 mm[Hg] Yamilet Fabian CLINIC CHARGE NURSE.SOFTWARE 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 DEVELOPER Work Phone: [facility] 03-04-2022 09:35-0400 Systolic blood pressure 110 mm[Hg] Yamilet Rogers CLINIC CHARGE NURSE.SOFTWARE 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 DEVELOPER Work Phone: [facility] 09-13-2018 09:24-0500 Body height 167.64 cm Teresa Valerio RN [facility], [facility]. 09-13-2018 09:24-0500 Body mass index (BMI) [Ratio] 21.87 kg/m2 Teresa Valerio RN [facility], [facility].; Echeverira Hoard [facility] 09-13-2018 09:24-0500 Body surface area Derived from formula 1.7 m2 Teresa Valerio RN [facility], [facility].; [employer]. 09-13-2018 09:24-0500 Body temperature 98.4 [degF] Teresa Valerio RN [facility], [facility].; [employer], [employer]. Encounters Encounter Date Encounter Type Care Provider Facility Start: 05-13-2022 End: 05-13-2022 Patient encounter procedure Mariela Older CLINIC CHARGE NURSE.SOFTWARE 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 DEVELOPER Work Phone: [facility] Procedures Date Procedure Procedure Detail Performing Clinician Start: 03-11-2022 Us breast uni real t ita with image limited Yamilet Rogers CLINIC CHARGE NURSE.TRUPTI Work Phone: Start: 08-30-2012 End: 08-31-2012 Us exam, breast(s) Yulia Pandya Work Phone: Start: 08-26-2012 End: 08-26-2012 Screening mammography Alexa Burnette Work Phone: Plan of Treatment Date Care Activity Detail Author Start: 02-19-2031 Urine microalbumin profile DTAP,TDAP,TD (7 - Td or Tdap) [facility] Start: 03-04-2025 PAP TESTING PAP TESTING [facility] Start: 06-26-2022 Influenza vaccination [facility] Start: 05-12-2022 PAP TESTING PAP TESTING [facility] Start: 2012 ONE PNEUMOVAX PRIOR TO AGE 65 ONE PNEUMOVAX PRIOR TO AGE 65 [facility] Start: 2005 Adult depression screening assessment DEPRESSION SCREENING [facility] Start: 1999 PNEUMOCOCCAL (1 - PCV) PNEUMOCOCCAL (1 - PCV) 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.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 Work Phone: [facility] Work Phone: 09-11-2020 influenza, injectabl e, quadrivalent, contains preservative Yamilet Fabian CLINIC CHARGE NURSE.SOFTWARE 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 Work Phone: [facility] 04-09-2018 Human Papillomavirus 9-valent vaccine Yamilet Rogers CLINIC CHARGE NURSE.SOFTWARE 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 Work Phone: [facility] 11-05-2017 Human Papillomavirus 9-valent vaccine Yamilet Rogers CLINIC CHARGE NURSE.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 DEVELOPER Work Phone: [facility] Work Phone: 09-01-2017 Human Papillomavirus 9-valent vaccine Yamilet Rogers CLINIC CHARGE NURSE.SOFTWARE 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 1993 Unknown [id number] 1993 Unknown [id number] Unknown [id number] Social History Date Type Detail Facility Start: 05-05-2016 End: 08-20-2020 Tobacco smoking status NHIS Occasional tobacco smoker [facility] Work Phone: Start: 05-05-2016 End: 08-20-2020 History of tobacco use Smoker [facility] Work Phone: Start: 03-04-2022 Cigarettes smoked current (pack per day) - [facility]25 [facility] Start: 03-04-2022 Tobacco use and exposure Smoke less tobacco non-user [facility] Work Phone: Start: 03-04-2022 End: 05-13-2022 Alcohol intake Ex-drinker (finding) [facility] Start: 07-22-2016 History SDOH Alcohol Comment occ [facility] Start: 09-06-2020 End: 05-13-2022 History SDOH Financial 5 [facility] Start: 09-06-2020 End: 05-13-2022 History SDOH Food Worry 1 [facility] Start: 09-06-2020 End: 05-13-2022 History SDOH Transport Med 2 [facility] Start: 09-06-2020 Education 13 [facility] Start: 1995 Sex Assigned At Female C [facility] Start: 02-22-2022 End: 03-04-2022 Exposure to SARS-CoV-2 (event) Not sure [facility] Work Phone: Start: 05-13-2022 History SDOH Alcohol Frequency 3 [facility] Start: 05-13-2022 History SDOH Social Connections Meetings 98 [facility] Start: 05-13-2022 History SDOH Financial 4 [facility] Alcohol Use: Alcohol Use: ; M oderate alcohol use. [employer] Exercise History: Exercise Histo ry: ; Light. [employer]; [employer] Tobacco Use: Tobacco Use: ; C urrent every day smoker. [employer] Never smoked tobacco [employer] Work Phone: Moderate alcohol use [employer]; [employer]. Work Phone: Smokes tobacco daily [employer]; [employer] Work Phone: Ex-smoker [employer]; [employer] Work Phone: Clinical Notes 02-01-2021 to 05-13-2022 Mariela Jensen APRN.CNP - 05/13/2022 1:07 PM EDTTelephone Encounter - RT Soco(R) - 03/07/2022 8:24 AM Ellyn Peralta APRN.CNP - 03/04/2022 9:34 AM EDT Note Date & Type Note Facility 05-13-2022 Note HNO ID: [id number] Author: Mariela Jensen APRN.SOFTWARE 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 DEVELOPER Service: ? Author Type: Nurse Practitioner Type: Progress Notes Filed: 05/13/2022 1:26 PM Note Text: CC: Patient presents with: Back Pain: LOWER - since having child x 1 year ago HPI Kwame Ochoa is a 26 year old female who presents for above. She was having bilateral hip pain that started around the same time as the back pain. She was evaluated by a chiropractor and hip pain resolved after a few adjustments. Back pain is located across lower lumbar region without radiation. Described as aching, sometimes has burning pain in the mid lumbar region Cause: The back pain is not related to a known injury. Started shortly after giving Pain is aggravated by bending, stooping and lifting Pain is alleviated by heat, ice, repositioning Denies: weakness, numbness, tingling, morning stiffness, leg pain, loss of bowel or bladder control, foot drop and gait disturbance Also denies fever, weight loss, history of cancer, history of steroid use, obesity, sedentary life style and IV drug abuse Treatments tried: ibuprofen with temporary relief. Denies history of back problems. REVIEW OF SYSTEMS See HPI PAST MEDICAL HISTORY Diagnosis Date - childhood asthma - fibradenoma right breast - Kawasaki disease (HCC) 4 years old PAST SURGICAL HISTORY Procedure Laterality Date - APPENDECTOMY 10/26/2010 - PAST SURGICAL HISTORY OF Right sterotactic breast biopsy - TONSILLECTOMY HX 10/26/2008 ALLERGIES [facility]ICATION[facility] hydrocortisone (ANUSOL-HC) 2.5 % rectal cream by RECTAL route twice daily. ibuprofen (MOTRIN) 200 mg tablet Take 200 mg by mouth every 6 hours as needed. EPINEPHRINE (EPIPEN 2-CURTIS INJECTION) by INJECTION(UNSPECIFIED PARENTERAL ROUTES) route. FAMILY HISTORY Problem Relation Age of Onset - None Mother - Hypertension Father - other (brain tumor) Sister benign - No Known Problems Paternal Grandmother - Breast Cancer Paternal Aunt - No Known Problems Maternal Grandmother - Heart Maternal Grandfather - Diabetes Maternal Grandfather - No Known Problems Paternal Grandfather - Breast Cancer Other Social History Tobacco Use - Smoking status: Current Some Day Smoker Packs/day: 0.25 Years: 5.00 Pack years: 1.25 Start date: 05/05/2016 Last attempt to quit: 08/20/2020 Years since quittin.7 - Smokeless tobacco: Never Used Vaping Use - Vaping Use: Never used Substance Use Topics - Alcohol use: Not Currently Comment: occ - Drug use: No PHYSICAL EXAM BP 132/76 Pulse 74 Resp 14 Wt 53.5 kg (118 lb) LMP 07/11/2020 (Approximate) BMI 18.62 kg/m? General Appearance: well appearing, in no acute distress, alert Back: Normal to inspection. Mild tenderness with palpation of lumbar spine and with palpation of paraspinal muscles. ROM: Full ROM with mild discomfort. Reflexes:2+ and symmetric. Muscle strength: 5/5 bilaterally. SLR: Supine - Right Negative, Left Negative. Gait normal including ambulating on heels and toes DATA REVIEWED: Imaging from chiropractor ASSESSMENT/PLAN: 1. Chronic bilateral low back pain without sciatica - ICD9: 724.2, 338.29, ICD10: M54.50, G89.29 Symptoms started after childbirth. Possibly related to ligamentous injury during childbirth and/or laxity from hormones. No alarm symptoms or exam findings on exam today. - CONSULT TO PHYSICAL THERAPY - Okay to take ibuprofen while - Discussed non-medication measures including ice, heat, stretching - Follow-up as needed if back persists despite above measures Prescription instructions reviewed with patient as applicable. Potential red flag symptoms discussed with the patient. Reviewed appropriate action plan to take if red flag symptoms occur. Patient agreeable to treatment plan. Mariela Jensen APRN.[facility] 05-13-2022 History of Presen t illness Narrative CC: Patient presents with: Back Pain: LOWER - since having child x 1 year ago MERRILL Ochoa is a 26 year old female who presents for above. She was having bilateral hip pain that started around the same time as the back pain. She was evaluated by a chiropractor and hip pain resolved after a few adjustments. Back pain is located across lower lumbar region without radiation. Described as aching, sometimes has burning pain in the mid lumbar region Cause: The back pain is not related to a known injury. Started shortly after giving Pain is aggravated by bending, stooping and lifting Pain is alleviated by heat, ice, repositioning Denies: weakness, numbness, tingling, morning stiffness, leg pain, loss of bowel or bladder control, foot drop and gait disturbance Also denies fever, weight loss, history of cancer, history of steroid use, obesity, sedentary life style and IV drug abuse Treatments tried: ibuprofen with temporary relief. Denies history of back problems. REVIEW OF SYSTEMS See HPI PAST MEDICAL HISTORY Diagnosis Date childhood asthma fibradenoma right breast Kawasaki disease (HCC) 4 years old PAST SURGICAL HISTORY Procedure Laterality Date APPENDECTOMY 10/26/2010 PAST SURGICAL HISTORY OF Right sterotactic breast biopsy TONSILLECTOMY HX 10/26/2008 ALLERGIES [facility] [facility]ICATION[facility] hydrocortisone (ANUSOL-HC) 2.5 % rectal cream by RECTAL route twice daily. ibuprofen (MOTRIN) 200 mg tablet Take 200 mg by mouth every 6 hours as needed. EPINEPHRINE (EPIPEN 2-CURTIS INJECTION) by INJECTION(UNSPECIFIED PARENTERAL ROUTES) route. FAMILY HISTORY Problem Relation Age of Onset None Mother Hypertension Father other (brain tumor) Sister benign No Known Problems Paternal Grandmother Breast Cancer Paternal Aunt No Known Problems Maternal Grandmother Heart Maternal Grandfather Diabetes Maternal Grandfather No Known Problems Paternal Grandfather Breast Cancer Other Social History Tobacco Use Smoking status: Current Some Day Smoker Packs/day: 0.25 Years: 5.00 Pack years: 1.25 Start date: 05/05/2016 Last attempt to quit: 08/20/2020 Years since quittin.7 Smokeless tobacco: Never Used Vaping Use Vaping Use: Never used Substance Use Topics Alcohol use: Not Currently Comment: occ Drug use: No PHYSICAL EXAM BP 132/76 Pulse 74 Resp 14 Wt 53.5 kg (118 lb) LMP 07/11/2020 (Approximate) BMI 18.62 kg/m General Appearance: well appearing, in no acute distress, alert Back: Normal to inspection. Mild tenderness with palpation of lumbar spine and with palpation of paraspinal muscles. ROM: Full ROM with mild discomfort. Reflexes:2+ and symmetric. Muscle strength: 5/5 bilaterally. SLR: Supine - Right Negative, Left Negative. Gait normal including ambulating on heels and toes DATA REVIEWED: Imaging from chiropractor ASSESSMENT/PLAN: 1. Chronic bilateral low back pain without sciatica - ICD9: 724.2, 338.29, ICD10: M54.50, G89.29 Symptoms started after childbirth. Possibly related to ligamentous injury during childbirth and/or laxity from hormones. No alarm symptoms or exam findings on exam today. - CONSULT TO PHYSICAL THERAPY - Okay to take ibuprofen while - Discussed non-medication measures including ice, heat, stretching - Follow-up as needed if back persists despite above measures Prescription instructions reviewed with patient as applicable. Potential red flag symptoms discussed with the patient. Reviewed appropriate action plan to take if red flag symptoms occur. Patient agreeable to treatment plan. Mariela Jensen APRN.CNP documented in this encounter [facility] 03-07-2022 Miscellaneous Notes May we please have a right diagnostic mammogram order placed. Only to be used if needed at the discretion of the radiologist. Thank you so much! Iva Oscar RDMS documented in this encounter [facility] 03-04-2022 Note HNO ID: [id number] Author: Yamilet Peralta APRN.CNP Service: ? Author Type: Nurse Practitioner Type: Progress Notes Filed: 03/04/2022 12:00 PM Note Text: Kwame is a 26 year old who presents for an annual gynecologic exam without complaints. Menses: no period. Contraception: condoms HPV vaccine: Yes Last Pap: 05/18/2019 normal HPV: N/A History of abnormal pap: No Last mammogram: breast US Sexually active: Yes Pain with intercourse: No OB History T1 L1 SAB0 IAB0 Ectopic0 Multiple0 Live Births1 [employer] History LMP: 07/11/2020 (Approximate), Age at Menarche: Age at First : Age at Menopause: [employer] History Comments: Sexual Activity: Yes; No partner data on record Contraception: Pill PAST MEDICAL HISTORY Diagnosis Date - childhood asthma - fibradenoma right breast - Kawasaki disease (HCC) 4 years old PAST SURGICAL HISTORY Procedure Laterality Date - APPENDECTOMY 10/26/2010 - PAST SURGICAL HISTORY OF Right sterotactic breast biopsy - TONSILLECTOMY HX 10/26/2008 FAMILY HISTORY Problem Relation Age of Onset - None Mother - Hypertension Father - other (brain tumor) Sister benign - No Known Problems Paternal Grandmother - Breast Cancer Paternal Aunt - No Known Problems Maternal Grandmother - Heart Maternal Grandfather - Diabetes Maternal Grandfather - No Known Problems Paternal Grandfather - Breast Cancer Other SOCIAL HISTORY Social History Tobacco Use - Smoking status: Current Some Day Smoker Packs/day: 0.25 Years: 5.00 Pack years: 1.25 Start date: 05/05/2016 Last attempt to quit: 08/20/2020 Years since quittin.5 - Smokeless tobacco: Never Used Vaping Use - Vaping Use: Never used Substance Use Topics - Alcohol use: Not Currently Comment: occ - Drug use: No REVIEW OF SYSTEMS Abdomen: No abdominal pain, nausea, vomiting, diarrhea, or constipation. No bloating, early satiety, indigestion, or increased flatulence. Some cramping Bladder: No dysuria, gross hematuria, urinary frequency, urinary urgency, or incontinence. Breast: No breast lumps, nipple d/c, overlying skin changes, redness or skin retraction. Allergies and current medication updated:Yes EXAM: Ht 5' 6.75 (1.70m) Wt 125 lb 6.4 oz (56.9kg) LMP 07/11/2020 BMI 19.80 kg/(m2). GENERAL: pleasant, female in no apparent distress HEENT: Normocephalic, atraumatic, mucus membranes moist and no lesions NECK: Supple, full range of motion, no adenopathy and thyroid normal DERMATOLOGY: Normal, without lesions, non-icteric and non-hirsute BREAST: soft, non-tender, symmetric, no dominant mass, normal nipple-areolar complex, no lymphadenopathy and no nipple discharge CHEST: Normal inspiratory effort ABDOMEN: soft, non-tender and no masses PELVIC: external genitalia normal, normal Bartholin's glands, urethra, Irvington's glands, no vulvar lesions, no cervical lesions, good vaginal support, physiologic discharge present, normal appearing perineal body and perianal region BIMANUAL: uterus normal size, shape and consistency, no adnexal masses and non-tender RECTOVAGINAL: deferred. NEURO: alert and oriented x3,exam grossly non-focal EXTREMITIES: normal ASSESSMENT/PLAN: 1) Health maintenance: Pap done with reflex HPV. Mammogram starting age 40. Nutrition, exercise and routine health maintenance exams reviewed. Calcium/Vitamin D supplementation information provided. 2) Contraception: condoms. Contraceptive options reviewed and information provided. 3) STD screening: Declined STD check. 4) Follow up one year or sooner as needed Yamilet Peralta APRN.[facility] 03-04-2022 History of Presen t illness Narrative Kwame is a 26 year old who presents for an annual gynecologic exam without complaints. Menses: no period. Contraception: condoms HPV vaccine: Yes Last Pap: 05/18/2019 normal HPV: N/A History of abnormal pap: No Last mammogram: breast US Sexually active: Yes Pain with intercourse: No OB History T1 L1 SAB0 IAB0 Ectopic0 Multiple0 Live Births1 [employer] History LMP: 07/11/2020 (Approximate), Age at Menarche: Age at First : Age at Menopause: [employer] History Comments: Sexual Activity: Yes; No partner data on record Contraception: Pill PAST MEDICAL HISTORY Diagnosis Date childhood asthma fibradenoma right breast Kawasaki disease (HCC) 4 years old PAST SURGICAL HISTORY Procedure Laterality Date APPENDECTOMY 10/26/2010 PAST SURGICAL HISTORY OF Right sterotactic breast biopsy TONSILLECTOMY HX 10/26/2008 FAMILY HISTORY Problem Relation Age of Onset None Mother Hypertension Father other (brain tumor) Sister benign No Known Problems Paternal Grandmother Breast Cancer Paternal Aunt No Known Problems Maternal Grandmother Heart Maternal Grandfather Diabetes Maternal Grandfather No Known Problems Paternal Grandfather Breast Cancer Other SOCIAL HISTORY Social History Tobacco Use Smoking status: Current Some Day Smoker Packs/day: 0.25 Years: 5.00 Pack years: 1.25 Start date: 05/05/2016 Last attempt to quit: 08/20/2020 Years since quittin.5 Smokeless tobacco: Never Used Vaping Use Vaping Use: Never used Substance Use Topics Alcohol use: Not Currently Comment: occ Drug use: No REVIEW OF SYSTEMS Abdomen: No abdominal pain, nausea, vomiting, diarrhea, or constipation. No bloating, early satiety, indigestion, or increased flatulence. Some cramping Bladder: No dysuria, gross hematuria, urinary frequency, urinary urgency, or incontinence. Breast: No breast lumps, nipple d/c, overlying skin changes, redness or skin retraction. Allergies and current medication updated:Yes EXAM: Ht 5' 6.75 (1.70m) Wt 125 lb 6.4 oz (56.9kg) LMP 07/11/2020 BMI 19.80 kg/(m^2). GENERAL: pleasant, female in no apparent distress HEENT: Normocephalic, atraumatic, mucus membranes moist and no lesions NECK: Supple, full range of motion, no adenopathy and thyroid normal DERMATOLOGY: Normal, without lesions, non-icteric and non-hirsute BREAST: soft, non-tender, symmetric, no dominant mass, normal nipple-areolar complex, no lymphadenopathy and no nipple discharge CHEST: Normal inspiratory effort ABDOMEN: soft, non-tender and no masses PELVIC: external genitalia normal, normal Bartholin's glands, urethra, Irvington's glands, no vulvar lesions, no cervical lesions, good vaginal support, physiologic discharge present, normal appearing perineal body and perianal region BIMANUAL: uterus normal size, shape and consistency, no adnexal masses and non-tender RECTOVAGINAL: deferred. NEURO: alert and oriented x3,exam grossly non-focal EXTREMITIES: normal ASSESSMENT/PLAN: 1) Health maintenance: Pap done with reflex HPV. Mammogram starting age 40. Nutrition, exercise and routine health maintenance exams reviewed. Calcium/Vitamin D supplementation information provided. 2) Contraception: condoms. Contraceptive options reviewed and information provided. 3) STD screening: Declined STD check. 4) Follow up one year or sooner as needed Yamilet Peralta APRN.[facility] documented in this encounter [facility] 06-26-2021 Note HNO ID: [id number] Author: Emy Dc APRN.CNP Service: ? Author Type: Nurse Practitioner Type: Progress Notes Filed: 06/26/2021 11:37 AM Note Text: KOFI Ochoa is a 25 year old female who presents with 1 day of symptoms that are stable. Symptoms include: Fever (?100.4F): Yes or Chills: Yes Cough: No Shortness of breath: No or Difficulty breathing: No Fatigue: No Muscle aches: Yes Headache: Yes New loss of smell or taste: No Sore throat: Yes Nasal congestion: No or Rhinorrhea: No Nausea: No or Vomiting: No Diarrhea: No OTC meds/remedies that patient has tried: acetaminophen. High risk category assessment No high risk factors Exposures: Sick contacts? Yes Family or close contacts with confirmed/probable COVID-19 in last 14 days? Yes- was positive 10 days ago. She reports that she quit smoking about 10 months ago. She started smoking about 5 years ago. She has a 1.25 pack-year smoking history. She has never used smokeless tobacco. BP 108/68 Pulse 99 Temp (!) 38.1 ?C (100.5 ?F) (Left Tympanic) Resp 16 Wt 65.9 kg (145 lb 3.2 oz) LMP 07/11/2020 (Approximate) SpO2 99% BMI 23.44 kg/m? PAST MEDICAL HISTORY Diagnosis Date - childhood asthma - fibradenoma right breast - Kawasaki disease (HCC) 4 years old PAST SURGICAL HISTORY Procedure Laterality Date - APPENDECTOMY 2010 - TONSILLECTOMY HX 2008 ALLERGIES [facility] MEDICATIONS hydrocortisone (ANUSOL-HC) 2.5 % rectal cream by RECTAL route twice daily. Qiyayqlo-Aw-Mld-Fe-FA ( VITAMIN) tab Take 1 tablet by mouth once daily. ibuprofen (MOTRIN) 200 mg tablet Take 200 mg by mouth every 6 hours as needed. EPINEPHRINE (EPIPEN 2-CURTIS INJECTION) by INJECTION(UNSPECIFIED PARENTERAL ROUTES) route. FAMILY HISTORY Problem Relation Age of Onset - None Mother - Hypertension Father - other (brain tumor) Sister benign - No Known Problems Paternal Grandmother - Breast Cancer Paternal Aunt - No Known Problems Maternal Grandmother - Heart Maternal Grandfather - Diabetes Maternal Grandfather - No Known Problems Paternal Grandfather - Breast Cancer Other Social History Tobacco Use - Smoking status: Former Smoker Packs/day: 0.25 Years: 5.00 Pack years: 1.25 Start date: 05/05/2016 Quit date: 08/20/2020 Years since quittin.8 - Smokeless tobacco: Never Used Vaping Use - Vaping Use: Never used Substance Use Topics - Alcohol use: Not Currently Comment: occ - Drug use: No OBJECTIVE Physical Exam Vitals and nursing note reviewed. HENT: Mouth/Throat: Mouth: Mucous membranes are moist. Pharynx: Oropharynx is clear. Uvula midline. No oropharyngeal exudate or posterior oropharyngeal erythema. Cardiovascular: Rate and Rhythm: Normal rate and regular rhythm. Heart sounds: Normal heart sounds. Pulmonary: Effort: Pulmonary effort is normal. No respiratory distress. Breath sounds: Normal breath sounds. No wheezing or rales. Skin: General: Skin is warm and dry. Findings: No erythema or rash. Neurological: Mental Status: She is alert. ASSESSMENT/PLAN ASSESSMENT/PLAN: 1. Suspected COVID-19 virus infection - ICD9: V01.79, ICD10: Z20.822 - 2019 CORONAVIRUS 2. Exposure to COVID-19 virus - ICD9: V01.79, ICD10: Z20.822 - 2019 CORONAVIRUS - Follow-up with your PCP in 3-5 days if symptoms have not improved or sooner if symptoms worsen - Discussed red flags and need for immediate medical evaluation if any occur. - Discussed supportive care treatment with fluids, rest and analgesia. - Discussed expected course of illness Emy Dc APRN.SOFTWARE 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 DEVELOPER - Meets symptom-based criteria for testing and is low risk. - COVID swab collected at time of office visit - Instructed to isolate pending test results - Discussed symptom monitoring and supportive care - Red flag symptoms requiring follow up discussed This patient encounter involved the screening or treatment of novel coronavirus infection (COVID-19). [facility] 05-31-2021 Note HNO ID: [id number] Author: Lucille Higuera APRN.TAZ Service: ? Author Type: [employer] Type: Progress Notes Filed: 06/01/2021 3:17 PM Note Text: VISIT Kwame Ochoa is a 25 year old year old here for visit. Delivery Summary: by Mary on 04/21/21 ROS/ Recovery: Feeding: Breast feeding problems: None Menses since delivery: No menses, Menstrual pattern prior to : Regular periods [place] since delivery: Not resumed Depression: denies symptoms of depression. (Lines 3 AND 4 applicable if either Lines 1 or 2 are positive) 1. Over the past 2 weeks have you felt down, depressed, or hopeless? Negative 2. Over the past two weeks, have you felt little interest or pleasure in doing things? Negative 3. Have you had thoughts of harming yourself or others? N/A 4. [place] Depression Scale (EPDS) Total Score: N/A Emotional support: Yes Bowel symptoms: Negative for abdominal discomfort, blood in stools or black stools and change in bowel habits Abdomen: N/A Bladder symptoms: No dysuria, gross hematuria, urinary frequency, urinary urgency, or incontinence Other issues: None Last Pap: 2019 normal HPV: N/A PAST MEDICAL HISTORY Diagnosis Date - childhood asthma - fibradenoma right breast - Kawasaki disease (HCC) 4 years old PAST SURGICAL HISTORY Procedure Laterality Date - APPENDECTOMY 2010 - TONSILLECTOMY HX 2009 FAMILY HISTORY Problem Relation Age of Onset - None Mother - Hypertension Father - other (brain tumor) Sister benign - No Known Problems Paternal Grandmother - Breast Cancer Paternal Aunt - No Known Problems Maternal Grandmother - Heart Maternal Grandfather - Diabetes Maternal Grandfather - No Known Problems Paternal Grandfather - Breast Cancer Other Social History Tobacco Use - Smoking status: Former Smoker Packs/day: 0.25 Years: 5.00 Pack years: 1.25 Start date: 05/05/2016 Quit date: 08/20/2020 Years since quittin.7 - Smokeless tobacco: Never Used Vaping Use - Vaping Use: Never used Substance Use Topics - Alcohol use: Not Currently Comment: occ - Drug use: No PHYSICAL EXAMINATION: BP 106/58 Wt 146 lb (66.2kg) LMP 07/11/2020 GENERAL: pleasant, female in no apparent distress HEENT: Normocephalic and atraumatic NECK: Supple, full range of motion, no adenopathy and thyroid normal DERMATOLOGY: Normal, without lesions, non-icteric and non-hirsute BREAST: soft, non-tender, symmetric, no dominant mass, normal nipple-areolar complex, no lymphadenopathy and no nipple discharge CHEST: Normal inspiratory effort ABDOMEN: soft, non-tender and no masses. INCISION: N/A PELVIC: external genitalia normal, normal Bartholin's glands, urethra, Irvington's glands, no vulvar lesions, no cervical lesions, good vaginal support, physiologic discharge present, normal appearing perineal body and perianal region BIMANUAL: uterus normal size, shape and consistency, no adnexal masses and non-tender NEURO: alert and oriented x3,exam grossly non-focal EXTREMITIES: normal ASSESSMENT AND PLAN: 25 year old status post with normal course. Contraception plan: none Reviewed hormonal and non hormonal options along with barrier method. She does not desire control. Reviewed ELENA and discussed baby less than 6 months old, exclusively and no resumption of menses. Discussed failure rate and risk of ovulation prior to first menses. Discussed recommended child spacing. Voiced understanding. Follow up: RTC for annual exams and PRN Lucille Higuera APRN.TAZ [facility] documented as of this encounter (statuses as of 03/04/2022) [facility]04-09-2021 History of Past illness Narrative* Problem Noted Date Resolved Date Supervision of high risk in third trim rebecca 02/01/2021 05/31/2021 Nausea and vomiting during 09/06/2020 03/19/2021 Overview: 09/06/2020Patient is complaining of nausea and vomiting in . Advised patient to call/come in if she is unable to keep any food or fluids down in a 24-hour period.TKRN Patient request for diagnostic testing 0 03/19/2021 Overview: 09/11/20 - needs to discuss CF testing at next visit - Marcelino Hunter MD 09/06/2020 Patient desires nuchal ultrasound. Considering genetic carrier screening testing.Natasha Espinoza RN documented as of this encounter (statuses as of 03/07/2022) [facility]04-09-2021 History of Past illness Narrative* Problem Noted Date Resolved Date Supervision of high risk in third trim rebecca 02/01/2021 05/31/2021 Nausea and vomiting during 09/06/2020 03/19/2021 Overview: 09/06/2020Patient is complaining of nausea and vomiting in . Advised patient to call/come in if she is unable to keep any food or fluids down in a 24-hour period.TKRN Patient request for diagnostic testing 0 03/19/2021 Overview: 09/11/20 - needs to discuss CF testing at next visit - Marcelino Hunter MD 09/06/2020 Patient desires nuchal ultrasound. Considering genetic carrier screening testing.Natasha Espinoza RN documented as of this encounter (statuses as of 03/12/2022) [facility]04-09-[facility]21 History of Past illness Narrative* Problem Noted Date Resolved Date Supervision of high risk in third trim rebecca 02/01/2021 05/31/2021 Nausea and vomiting during 09/06/2020 03/19/2021 Overview: 09/06/2020Patient is complaining of nausea and vomiting in . Advised patient to call/come in if she is unable to keep any food or fluids down in a 24-hour period.TKRN Patient request for diagnostic testing 0 03/19/2021 Overview: 09/11/20 - needs to discuss CF testing at next visit - Marcelino Hunter MD 09/06/2020 Patient desires nuchal ultrasound. Considering genetic carrier screening testing.Natasha Espinoza RN documented as of this encounter (statuses as of 05/12/2022) [facility]04-09-[facility]21 History of Past illness Narrative* Problem Noted Date Resolved Date Supervision of high risk in [facility] 02/01/2021 05/31/2021 Nausea and vomiting during 09/06/2020 03/19/2021 Overview: 09/06/2020Patient is complaining of nausea and vomiting in . Advised patient to call/come in if she is unable to keep any food or fluids down in a 24-hour period.TKRN Patient request for diagnostic testing 0 03/19/2021 Overview: 09/11/20 - needs to discuss CF testing at next visit - Marcelino Hunter MD 09/06/2020 Patient desires nuchal ultrasound. Considering genetic carrier screening testing.Natasha Espinoza RN documented as of this encounter (statuses as of 05/13/2022) [facility] Diagnosis Encounter for gynecological examination (general) (routine) without abnormal findings- Primary Screening for cervical cancer Screening for malignant neoplasm of the cervix Encounter for screening for human papillomavirus (HPV) Special screening examination for human papillomavirus (HPV) Fibroadenosis of right breast Fibroadenosis of breast [facility] Diagnosis Fibroadenosis of right breast- Primary Fibroadenosis of breast [facility] Diagnosis Fibroadenosis of right breast Fibroadenosis of breast [facility] Diagnosis Chronic bilateral low back pain without sciatica- Primary documented in this encounter [facility] for referral (narrative)* Diagnostic Procedure Only (Routine) - Authorized Specialty Diagnoses / Procedures Referred By Oliver t Referred To Contact [facility] Diagnoses Fibroadenosis of right breast Procedures US BREAST LTD RT US BREAST UNI REAL TIME WITH IMAGE LIMITED Yamilet Peralta APRN.SOFTWARE 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 DEVELOPER [address] [place] [address] [facility] [address] [place] [address] Referral ID Status Reason Start Date Expiration Date Visits Requested Visits Authorized [id number] Authorized Auto-Generat ed Referral 03/04/2022 04/03/2023 1 1 [facility] for referral (narrative)* Diagnostic Procedure Only (Routine) - Pending Review Specialty Diagnoses / Procedures Referred By Oliver t Referred To Contact [facility] Diagnoses Fibroadenosis of right breast Procedures [facility]ANA DIAGNOSTIC RT DIAGNOSTIC MAMMOGRAPHY COMPUTER-AIDED DETCJ UNI Yamilet Peralta APRN.SOFTWARE 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 DEVELOPER [address] [place] [address] [facility] [address] [place] [address] Referral ID Status Reason Start Date Expiration Date Visits Requested Visits Authorized [id number] Pending Review Auto-Generat ed Referral 03/07/2022 04/06/2023 1 1 [facility] for referral (narrative)* Diagnostic Procedure Only (Routine) - Closed Specialty Diagnoses / Procedures Referred By Benjaminac t Referred To Contact [facility] Diagnoses Fibroadenosis of right breast Procedures US BREAST LTD RT US BREAST UNI REAL TIME WITH IMAGE LIMITED Yamilet Peralta APRN.SOFTWARE 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 DEVELOPER [address] [place] [address] [facility] [address] [place] [address] Referral ID Status Reason Start Date Expiration Date V isits Requested Visits Authorized [id number] Closed Auto-Generate d Referral 03/04/2022 04/03/2023 1 1 [facility] for visit Narrative* Diagnostic Procedure Only (Routine) - Closed Specialty Diagnoses / Procedures Referred By Oliver quinn Referred To Contact [facility] Diagnoses Fibroadenosis of right breast Procedures US BREAST LTD RT US BREAST UNI REAL TIME WITH IMAGE LIMITED Ymailet Peralta APRN.SOFTWARE 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 DEVELOPER [address] [place] [address] [facility] [address] [place] [address] Referral ID Status Reason Start Date Expiration Date V isits Requested Visits Authorized [id number] Closed Auto-Generate d Referral 03/04/2022 04/03/2023 1 1 [facility] Summary Purpose Family History Coronary Artery Disease Status:Active Comments :Maternal Grandfather. Paternal Grandfather. diabetes-granfather Status:Active Hypertension Status:Active Comments:Father. Advance Directives No Advanced Directives Records FoundNo Advanced Directives Records FoundNo Advanced Directives Records Found Reason for Referral Specialty Diagnoses / Procedures Referred By Oliver quinn Referred To Contact [facility] Diagnoses Chronic bilateral low back pain without sciatica Procedures CONSULT TO PHYSICAL THERAPY PHYSICAL THERAPY EVALUATION HIGH COMPLEX 45 MINS Older, CHRISTIANO Sierra.SOFTWARE 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 DEVELOPER [address] [place] [address] [facility] [place] [address] [place] [address] Referral ID Status Reason Start Date Expiration Date Visits Requested Visits Authorized [id number] Pending Review Auto-Generat ed Referral 05/13/2022 05/13/2023 1 1 Additional Source Comments INFORMATION SOURCE (unrecogn ized section and content) DATE CREATED AUTHOR AUTHOR'S ORGANIZ ATION 11/17/2020 [facility] DATE CREATED AUTHOR AUTHOR'S ORGANIZ ATION 05/16/2022 [facility] Source Comments (unrecognize d section and content) In the event this informatio n is protected by the Federal Confidentiality of Alcohol and Drug Abuse Patient Records regulations: The Federal rules restrict any use of the information to criminally investigate or prosecute any alcohol or drug abuse patient.[facility] event this information is protected by the Federal Confidentiality of Alcohol and Drug Abuse Patient Records regulations: The Federal rules restrict any use of the information to criminally investigate or prosecute any alcohol or drug abuse patient.[facility] the event this information is protected by the Federal Confidentiality of Alcohol and Drug Abuse Patient Records regulations: The Federal rules restrict any use of the information to criminally investigate or prosecute any alcohol or drug abuse patient.[facility] the event this information is protected by the Federal Confidentiality of Alcohol and Drug Abuse Patient Records regulations: The Federal rules restrict any use of the information to criminally investigate or prosecute any alcohol or drug abuse patient.[facility] the event this information is protected by the Federal Confidentiality of Alcohol and Drug Abuse Patient Records regulations: The Federal rules restrict any use of the information to criminally investigate or prosecute any alcohol or drug abuse patient.[facility] Reason for Visit (unrecogniz ed section and content) Reason Comments Orders Reason Comments Back Pain LOWER - since having child x 1 year ago Care Teams (unrecognized sec tion and content) Piano Case Maker Relationship Specialty Start Date End Date Derek Joe MD [address] [place], [place] [id number] PCP - General Internal Medicine 01/25/19 Piano Case Maker Relationship Specialty Start Date End Date Derek Joe MD [address] [place], [place] [id number] PCP - General Internal Medicine 01/25/19 Piano Case Maker Relationship Specialty Start Date End Date Derek Joe MD [address] [place], [place] [id number] PCP - General Internal Medicine 01/25/19 FOR RECORDS PERTAINING TO PATIENTS WHO ARE OR HAVE BEEN ENROLLED IN A CHEMICAL DEPENDENCY/SUBSTANCEABUSE PROGRAM, SOME INFORMATION MAY BE OMITTED. This clinical summary was aggregated from multiple sources. Caution should be exercised in using it in the provision of clinical care. This summary normalizes information from multiple sources, and as a consequence, information in this document may materially change the coding, format and clinical context of patient data. In addition, data may be omitted in some cases. CLINICAL DECISIONS SHOULD BE BASED ON THE PRIMARY CLINICAL RECORDS. [facility]. provides no warranty or guarantee of the accuracy or completeness of information in this document.
== END | disposition home or self-care (01) ==
PROVIDERS: PCP Family Medicine; Referring Provider Nurse Practitioner Women's Health; Visit Provider Nurse Practitioner Women's Health
DX: Z34.90 Encounter for supervision of normal pregnancy, unspecified, unspecified trimester (principal); Z3A.00 Weeks of gestation of pregnancy not specified
CPT/HCPCS: 87081

== ENCOUNTER → 2023-11-19 | Outpatient (CLI) | payer BC, SELFPAY ==
--- NOTE | 2023-11-19 15:01 | US_ITS ---
STUDY: SECOND AND THIRD TRIMESTER OBSTETRICAL ULTRASOUND REASON FOR EXAM: Female, 28 years old growth LMP: TECHNIQUE: Transabdominal TECHNICAL QUALITY: Adequate. PRIOR ULTRASOUND: October 21, 2023 FINDINGS: There is a single intrauterine fetus. The fetus is in a cephalic presentation. There is demonstrated cardiac activity with a heart rate of 141 bpm. There is a normal amniotic fluid volume. The largest amniotic fluid pocket measures 6 cm. The amniotic fluid index (JAYLAN) is 13.5 cm. The placenta is posterior There are Grade 2 placental changes. Cervical length could not be measured The bilateral adnexal regions are nonvisualized BIOMETRY: BPD: 9.15 cm: 37 weeks, 1 days HC: 33 cm: 37 weeks, 4 days AC: 33.2 cm: 37 weeks, 1 days FL: 6.8 cm: 35 weeks, 1 days CI: 0.79 FL/BPD: 0.74 FL/HC: FL/AC: 0.20 HC/AC: 1.0 age by current US: 36 weeks, 6 days. JUDY by current US: December 11, 2023. Estimated weight: 3021 grams, +/- 453 grams, 50.7 %. age by prior US: 37 weeks, 4 days. JUDY by prior US: December 06, 2023. Age by LMP: 39 weeks, 2 days. JUDY by LMP: November 24, 2023. ANATOMY: Not studied at this time US/OB Limited With Biometrics IMPRESSION: Viable intrauterine gestation approximately 37 weeks gestational age. No significant abnormalities Electronically Signed: Corey Olguin MD at 18:36 EST ,
== END | disposition home or self-care (01) ==
LOC: US 15:00
PROVIDERS: PCP Family Medicine; Referring Provider Obstetrics & Gynecology; Visit Provider Obstetrics & Gynecology
DX: O26.849 Uterine size-date discrepancy, unspecified trimester (principal); Z3A.00 Weeks of gestation of pregnancy not specified
CPT/HCPCS: 76816

== ENCOUNTER 2023-11-30 05:41 | Inpatient (IN) | payer BC, SELFPAY ==
[2023-11-30] VITALS (40 sets, daily range): BP systolic 107–177; BP diastolic 57–90; PULSE 53–83; RESP 16; TEMP 36.2–36.9; O2SAT 81–100; BMI 27.8
[2023-11-30 05:36] LABS: ROM Internal Control Test YES-OK TO RESULT pt. (Internal QC)
[2023-11-30 05:37] LABS: ROM Patient Test POSITIVE (Negative)
--- OUTSIDE RECORDS SUMMARY | 2023-11-30 05:45 | XMS RPT_ITS | CCD ---
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 Name Role Phone HEATHER, JACQUE Hunter Admitting Unavailable HEATHER, JACQUE Hunter Attending Unavailable HEATHER, JACQUE Hunter Primary Care Unavailable HEATHER, JACQUE Hunter Admitting Unavailable HEATHER, JACQUE Hunter Attending Unavailable HEATHERJACQUE JOHNSON Primary Care Unavailable Heath WILCOX, Derek Hernandez Primary Care Provider Yamel WALTER, Yulia hZang Unavailable Ollie WILCOX, Natalia Hunter Unavailable Mayo WILCOX, Ankit Oakes Unavailable Erik LICENSED MENTAL HEALTH COUNSELOR, Faith Unavailable Vess LICENSED MENTAL HEALTH COUNSELOR, Neandressa L Unavailable Unavailable Mamadou LICENSED MENTAL HEALTH COUNSELOR, Sandra Hunter Unavailable Unavailable Teodoro SHERWOOD, Teresa Mccormack Unavailable Unavailable Vargas LICENSED MENTAL HEALTH COUNSELOR, Lexie Ortega Unavailable Unavailab sean Medina LICENSED MENTAL HEALTH COUNSELOR, Crystal Unavailable Unavailguillermo e Desmond WALTER, Alexa Cantu Unavailable Fili LICENSED MENTAL HEALTH COUNSELOR, Pricilla Lee Unavailable Unavaila ble Betzy SHERWOOD, Yulia Reynolds Unavailable Unavaila ble Unavailable Unavailable Allergies Allergy Classification Reported Allergen(s) Allergy Type Date of Onset Reaction(s) Facility (5 sources) Bees Allergy to substance 7 Other: See Comments [facility] Work Phone: Medications Current Medications Medication Drug Class(es) Dates Sig (Normalized) Sig (Original) [id number] 200 actuat albuterol 0.09 mg/actuat metered dose inhaler (3 sources) beta2-Adrenergic Agonist Start: 12-10-2015 take 2 puff(s) by inhalation every four to six hours PROAIR HFA, 108 (90 Base)MCG/ACT (Inhalation Aerosol Solution) ; 2 (two) puffs Every 4-6 hours for 0 days Quantity: 1 {Inhaler} Refills: 3 Ordered: 10-Dec-2015 SABA Logan Start: 10-Dec-2015 [id number] 0.3 ml EPINEPHrine 1 mg/ml auto-injector (8 sources) alpha-Adrenergic Agonist, beta-Adrenergic Agonist, Catecholamine Start: 08-04-2017 EPINEPHrine 0.3 MG/0.3ML Injection Solution Auto-injector ; 1 (one) Soln Auto-inj Soln Auto-inj at tiime of sting for 0 days Quantity: 1 {Syringe} Refills: 3 Ordered: 04-Aug-2017 PRESLEY Valerio Start: 04-Aug-2017 Completed/Discontinued Medications Medication Drug Class(es) Dates Sig (Normalized) Sig (Original) amoxicillin 875 mg / clavulanate 125 mg oral tablet (3 sources) Penicillin-class Antibacterial Start: 12-18-2014 End: 12-28-2014 take 1 tablet by mouth twice daily at mealtime AUGMENTIN, 875-125MG (Oral Tablet) ; 1 Tab two times daily for 10 days Quantity: 20 {Tablet} Refills: 0 Ordered: 18-Dec-2014 SABA Montesinso Start: 18-Dec-2014 End: 28-Dec-2014 Status: Inactive Comments: Take with food Problems Active Problems Problem Classification Problem Date Documented Da te Episodic/Chronic Abdominal pain (20 sources) Flank pain; Translations: [Unspecified abdominal pain] 12-10-2015 Episodic Administrative/social admission (9 sources) Issue of repeat prescriptions 06-18-2015 Episodic Allergic reactions (18 sources) Allergy to insect protein; Translations: [Other insect allergy status] 08-04-2017 Episodic Asthma (9 sources) Asthma; Translations: [Unspecified asthma, uncomplicated] 12-10-2015 Chronic Chronic obstructive pulmonary disease and bronchiectasis (6 sources) Bronchitis; Translations: [Bronchitis, not specified as acute or chronic] 12-10-2015 Episodic Fever of unknown origin (3 sources) Fever, unspecified; Translations: [Fever, unspecified] Onset: 05-03-2020 Episodic Fluid and electrolyte disorders (6 sources) Dehydration; Translations: [Dehydration] 03-20-2015 Episodic Gastrointestinal hemorrhage (6 sources) Hemorrhage of rectum and anus 12-10-2015 Episodic Headache; including migraine (1 source) Headache; Translations: [Headache] Onset: 05-03-2020 Episodic Immunizations and screening for infectious disease (1 source) Patient encounter status; Translations: [Encounter for screening for human papillomavirus (HPV)] Episodic Lymphadenitis (6 sources) Lymphadenopathy; Translations: [Generalized enlarged lymph nodes] 12-10-2015 Episodic Malaise and fatigue (6 sources) Fatigue; Translations: [Other fatigue] 09-13-2018 Episodic Menstrual disorders (12 sources) Menstrual period late; Translations: [Irregular menstruation, unspecified] 05-15-2017 Chronic Mood disorders (20 sources) Depressive disorder; Translations: [Depressive disorder, not elsewhere classified] 12-10-2015 Chronic Noninfectious gastroenteritis (6 sources) Other and unspecified noninfectious gastroenteritis and colitis 03-20-2015 Episodic Nonmalignant breast conditions (3 sources) Fibroadenosis of right breast; Translations: [Fibroadenosis of right breast] Chronic Nonmalignant breast conditions (12 sources) Breast lump; Translations: [Unspecified lump in breast] 12-10-2015 Episodic Other aftercare (9 sources) Long-term (current) use of other medications 03-20-2015 Episodic Other complications of (6 sources) Symptomatic disorders in ; Translations: [ related conditions, unspecified, unspecified trimester] 12-10-2015 Episodic Other gastrointestinal disorders (1 source) Diarrhea, unspecified; Translations: [Diarrhea, unspecified] Onset: 05-03-2020 Episodic Other gastrointestinal disorders (6 sources) Loose stool; Translations: [Other fecal abnormalities] 09-13-2018 Episodic Other lower respiratory disease (1 source) Cough; Translations: [Cough] Onset: 05-03-2020 Episodic Other non-traumatic joint disorders (6 sources) Hip pain; Translations: [Pain in right hip] 12-10-2015 Episodic Other screening for suspected conditions (not mental disorders or infectious disease) (1 source) Cancer cervix screening status; Translations: [Encounter for screening for malignant neoplasm of cervix] Episodic Other upper respiratory infections (20 sources) Acute sinusitis, unspecified; Translations: [Sore throat symptom] 03-20-2015 Episodic Spondylosis; intervertebral disc disorders; other back problems (1 source) Chronic low back pain; Translations: [Chronic bilateral low back pain without sciatica] Episodic Unclassified (3 sources) Well adult female - The patient feels [...] to be off of it. 04-07-2014 Unclassified (3 sources) Well adult female - The patient feels [...] : Currently in her 1st year of [employer] schooling. Says that her anxiety has worsened over the past couple of months. Was doing well but has started to have panic attacks about once a week. Under more stress since has moved to [place] for school. Would like to have her dose of prozac increased. Sexually active - sometimes uses condoms. 11-12-2012 Unclassified (3 sources) Follow Up for Multiple Chronic Conditions - The patient is here for follow-up of depression. The patient always takes the prescribed medications. No side effects noted. The patient engages in regular exercise program 1-3 times per week. The patient states that mood is unchanged (mom states that her outbursts have been less dramatic, so possibly a mild improvement....). 03-03-2012 Unclassified (3 sources) Well Adult, female - The patient feels [...] partners, condoms always used 12-04-2011 Viral infection (6 sources) Infectious mononucleosis 03-20-2015 Episodic Past or Other Problems Problem Classification Problem Date Documented Date Episodic/Chronic Screening and history of mental health and substance abuse codes (5 sources) Stopped smoking; Translations: [Personal history of nicotine dependence] Onset: 0 09-06-2020 Episodic Unclassified (3 sources) Abdominal pain - The onset of the [...] asked and she is negative 09-13-2018 Unclassified (3 sources) Cold Symptoms - Symptoms include ear pain [...] have been diagnosed with bronchitis). 12-10-2015 Unclassified (3 sources) Hip pain - The onset of the [...] leg down sometimes d/t pain. 10-24-2015 Unclassified (3 sources) Cold Symptoms - Symptoms include sore throat, [...] sinusitis or recurrent strep pharyngitis. 07-17-2015 Unclassified (3 sources) Well Adult, female - The patient feels [...] sleeps 7 hours per night. 04-11-2015 Unclassified (3 sources) Cold Symptoms - Symptoms include nasal congestion, [...] Feels asthma has flared uo. 03-20-2015 Unclassified (3 sources) Cold Symptoms - Symptoms include nasal congestion, [...] history of asthma or tonsillectomy. 12-18-2014 Unclassified (3 sources) Cold Symptoms - Symptoms include ear pain, [...] an individual with strep (coworker). 08-03-2014 Unclassified (3 sources) Bloody stools - The onset of the [...] painful bowel movements or diarrhea. 03-22-2013 Unclassified (3 sources) Cold Symptoms - Symptoms include nasal congestion, [...] of s.o.b. No c/o cough. 09-09-2012 Unclassified (3 sources) Chest pain - The onset of the [...] contraceptives and bronchodilators (prn- asthma). 08-30-2012 Unclassified (3 sources) Gastroenteritis - The history today is reported [...] pain, sore throat or cough. 04-21-2012 Unclassified (3 sources) Rash - The onset of the rash has been acute and has been occurring in a persistent pattern for 6 days. The course has been increasing. The rash is characterized as red. The rash was first seen on the upper extremity. It spread to the face. There has been associated itching. Note for Rash : reviewed by [facility] 04-12-2012 Unclassified (3 sources) Sore Throat - The onset of the [...] had some congestion. Pt is working for [employer] and putting long hours and is exhausted when she gets home.). Note for Sore Throat : Not using any OTC's. reviewed by [facility] 04-05-2012 Unclassified (3 sources) concerns and questions - Pt. here to talk to [facility]. Pt. and mother did not offer any specific reason for visit. Mother states well, she has issues Mom states that Kwame has trouble sleeping, is easy to anger, and has frequent moods swings; when i ask kwame what she does for fun she answers nothing ; when asked what makes her happy, she answers nothing SHe has dropped out of [employer] this year; planning on attending [employer].... 02-04-2012 Unclassified (3 sources) Abdominal pain - The onset of the [...] (LMP was 10/30/10) or vomiting. 11-17-2011 Unclassified (3 sources) Cold Symptoms - Symptoms include sneezing, ear [...] NEGATED: Highlighted row has been ruled out!Unclassified (3 sources) No Known / History Onset: 4 04-11-2015 Results Test Name Value Interpretation Reference Range Facil ity Vital Signs Date Time Vital Sign Value Performing Clinician Neptali mcgarry 05-13-2022 13:00-0400 Body weight 53.52 kg Mariela Older AIR TUBE RELEASER.TRUPTI Work Phone: [facility] 05-13-2022 13:00-0400 Diastolic blood pressure 76 mm[Hg] Mariela Older AIR TUBE RELEASER.TRUPTI Work Phone: [facility] 05-13-2022 13:00-0400 Heart rate 74 /min Mariela Older AIR TUBE RELEASER.RECEIVING OPERATOR Work Phone: [facility] 05-13-2022 13:00-0400 Respiratory rate 14 /min Mariela Older AIR TUBE RELEASER.RECEIVING OPERATOR Work Phone: [facility] 05-13-2022 13:00-0400 Systolic blood pressure 132 mm[Hg] Mariela Older AIR TUBE RELEASER.RECEIVING OPERATOR Work Phone: [facility] 03-04-2022 09:35-0400 Body height 169.5 cm Yamilet [place] AIR TUBE RELEASER.RECEIVING OPERATOR Work Phone: [facility] 03-04-2022 09:35-0400 Body weight 56.88 kg Yamilet [place] AIR TUBE RELEASER.RECEIVING OPERATOR Work Phone: [facility] 03-04-2022 09:35-0400 Diastolic blood pressure 60 mm[Hg] Yamilet Fabian AIR TUBE RELEASER.RECEIVING OPERATOR Work Phone: [facility] 03-04-2022 09:35-0400 Systolic blood pressure 110 mm[Hg] Yamilet Fabian AIR TUBE RELEASER.RECEIVING OPERATOR Work Phone: [facility] 09-13-2018 09:24-0500 Body height 167.64 cm Teresa Valerio RN [facility], [facility]. 09-13-2018 09:24-0500 Body mass index (BMI) [Ratio] 21.87 kg/m2 Teresa Valerio RN [facility], [facility].; [employer] [facility] 09-13-2018 09:24-0500 Body surface area Derived from formula 1.7 m2 Teresa Valerio RN [facility], [facility].; [employer] 09-13-2018 09:24-0500 Body temperature 98.4 [degF] Teresa Valerio RN [facility], [facility].; [employer] Encounters Encounter Date Encounter Type Care Provider Facility Start: 05-13-2022 End: 05-13-2022 Patient encounter procedure Mariela Older AIR TUBE RELEASER.RECEIVING OPERATOR Work Phone: [facility] Procedures Date Procedure Procedure Detail Performing Clinician Start: 03-11-2022 Us breast uni real t ita with image limited Yamilet [place] AIR TUBE RELEASER.TRUPTI Work Phone: Start: 08-30-2012 End: 08-31-2012 Us exam, breast(s) Yulia Pandya Work Phone: Start: 08-26-2012 End: 08-26-2012 Screening mammography Alexa Burnette Work Phone: Plan of Treatment Date Care Activity Detail Author Start: 02-19-2031 Urine microalbumin profile DTAP,TDAP,TD (7 - Td or Tdap) [facility] Start: 03-04-2025 PAP TESTING PAP TESTING [facility] Start: 06-26-2022 Influenza vaccination [facility] Start: 05-12-2022 PAP TESTING PAP TESTING [facility] Start: 2012 ONE PNEUMOVAX PRIOR TO AGE 65 ONE PNEUMOVAX PRIOR TO AGE 65 [facility] Start: 2005 Adult depression screening assessment DEPRESSION SCREENING [facility] Start: 1999 PNEUMOCOCCAL (1 - PCV) PNEUMOCOCCAL (1 - PCV) [facility] Start: 1998 COVID-19 VACCINE (#1) COVID-19 VACCINE (#1) [facility] Start: 02-08-1994 COVID-19 VACCINE (#1) COVID-19 VACCINE (#1) [facility] End: 04-06-2023 Diagnostic mammography computer-aided detcj uni [facility] RT Radiology Routine Fibroadenosis of right breast 1 Occurrences starting 03/07/2022 until 04/06/2023 [facility] Work Phone: Immunizations Immunization Date Immunization Notes Care Provider Fa cility 02-19-2021 tetanus toxoid, redu tre diphtheria toxoid, and acellular pertussis vaccine, adsorbed Yamilet [place] AIR TUBE RELEASER.RECEIVING OPERATOR Work Phone: [facility] Work Phone: 09-11-2020 influenza, injectabl e, quadrivalent, contains preservative Yamilet Fabian AIR TUBE RELEASER.RECEIVING OPERATOR Work Phone: [facility] 04-09-2018 Human Papillomavirus 9-valent vaccine Yamilet Fabian AIR TUBE RELEASER.RECEIVING OPERATOR Work Phone: [facility] 11-05-2017 Human Papillomavirus 9-valent vaccine Yamilet [place] AIR TUBE RELEASER.RECEIVING OPERATOR Work Phone: [facility] Work Phone: 09-01-2017 Human Papillomavirus 9-valent vaccine Yamilet Fabian AIR TUBE RELEASER.RECEIVING OPERATOR Work Phone: [facility] 06-14-2012 meningococcal polysaccharide (groups A, C, Y and W-135) diphtheria toxoid conjugate vaccine (MCV4P) Yuliatyron Montesinos PA-C Work Phone: [facility], [facility].; [facility], [facility] Payers Date Payer Category Payer Unknown [employer]LEXIS [employer]UE CARD PPO OOS [id number] 2016-Present [phone] [address] [place] [address] PPO [id number] 1993 Unknown [id number] 1993 Unknown [id number] Unknown [id number] Social History Date Type Detail Facility Start: 05-05-2016 End: 08-20-2020 Tobacco smoking status NHIS Occasional tobacco smoker [facility] Work Phone: Start: 05-05-2016 End: 08-20-2020 History of tobacco use Smoker [facility] Work Phone: Start: 03-04-2022 Cigarettes smoked current (pack per day) - Reported 0.25 [facility] Start: 03-04-2022 Tobacco use and exposure Smoke less tobacco non-user [facility] Work Phone: Start: 03-04-2022 End: 05-13-2022 Alcohol intake Ex-drinker (finding) [facility] Start: 07-22-2016 History SDOH Alcohol Comment occ [facility] Start: 09-06-2020 End: 05-13-2022 History SDOH Financial 5 [facility] Start: 09-06-2020 End: 05-13-2022 History SDOH Food Worry 1 [facility] Start: 09-06-2020 End: 05-13-2022 History SDOH Transport Med 2 [facility] Start: 09-06-2020 Education 13 [facility] Start: 1995 Sex Assigned At Female C [facility] Start: 02-22-2022 End: 03-04-2022 Exposure to SARS-CoV-2 (event) Not sure [facility] Work Phone: Start: 05-13-2022 History SDOH Alcohol Frequency 3 [facility] Start: 05-13-2022 History SDOH Social Connections Meetings 98 [facility] Start: 05-13-2022 History SDOH Financial 4 [facility] Alcohol Use: Alcohol Use: ; M oderate alcohol use. [employer] Exercise History: Exercise Histo ry: ; Light. [employer]; [employer] Tobacco Use: Tobacco Use: ; C urrent every day smoker. [employer]; [employer] Never smoked tobacco [employer]; [employer] Work Phone: Moderate alcohol use [employer]; [employer]. Work Phone: Smokes tobacco daily [employer]; [employer] Work Phone: Ex-smoker [employer]; [employer] Work Phone: Clinical Notes 02-01-2021 to 05-13-2022 Mariela Jensen APRN.CNP - 05/13/2022 1:07 PM EDTTelephone Encounter - RT Soco(R) - 03/07/2022 8:24 AM Ellyn Peralta APRN.CNP - 03/04/2022 9:34 AM EDT Note Date & Type Note Facility 05-13-2022 Note HNO ID: [id number] Author: Mariela Jensen APRN.RECEIVING OPERATOR Service: ? Author Type: Nurse Practitioner Type: [...] Patient agreeable to treatment plan. Mariela Jensen APRN.[facility] 05-13-2022 History of Presen t illness Narrative [...] Mariela Jensen APRN.CNP documented in this encounter [facility] 03-07-2022 Miscellaneous Notes May we please have a right diagnostic mammogram order placed. Only to be used if needed at the discretion of the radiologist. Thank you so much! Iva Oscar RDMS documented in this encounter [facility] 03-04-2022 Note HNO ID: [id number] Author: Yamilet Peralta APRN.CNP Service: ? 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 Author [...] rectal cream by RECTAL route twice daily. Waaxpyse-Pc-Tqb-Fe-FA ( VITAMIN) tab Take 1 tablet by [...] Discussed expected course of illness Emy Dc APRN.RECEIVING OPERATOR - Meets symptom-based criteria for testing and is low risk. - COVID swab collected at time of office visit - Instructed to isolate pending test results - Discussed symptom monitoring and supportive care - Red flag symptoms requiring follow up discussed This patient encounter involved the screening or treatment of novel coronavirus infection (COVID-19). [facility] 05-31-2021 Note HNO ID: [id number] Author: Lucille Higuera APRN.TAZ Service: ? Author Type: Cyanide Pot Hardener Type: Progress Notes Filed: 06/01/2021 3:17 PM Note Text: VISIT Kwame Ochoa is a 25 year old year old here for visit. Delivery Summary: by Mary on 04/21/21 ROS/ Recovery: Feeding: Breast feeding problems: None Menses since delivery: No menses, Menstrual pattern prior to : Regular periods [place] since delivery: Not resumed Depression: denies symptoms [...] of harming yourself or others? N/A 4. [place] Depression Scale (EPDS) Total Score: N/A Emotional [...] external genitalia normal, normal Bartholin's glands, urethra, [place]'s glands, no vulvar lesions, no cervical lesions, [...] of this encounter (statuses as of 03/04/2022) [facility] History of Past illness Narrative* Problem Noted [...] of this encounter (statuses as of 03/07/2022) [facility] History of Past illness Narrative* Problem Noted [...] of this encounter (statuses as of 03/12/2022) [facility] History of Past illness Narrative* Problem Noted [...] of this encounter (statuses as of 05/12/2022) [facility] History of Past illness Narrative* Problem Noted Date Resolved Date Supervision of high risk in [employer] [facility] [employer] [facility] [employer] 02/01/2021 05/31/2021 Nausea and vomiting during 09/06/2020 [...] of this encounter (statuses as of 05/13/2022) [facility] Diagnosis Encounter for gynecological examination (general) (routine) without abnormal findings- Primary Screening for cervical cancer Screening for malignant neoplasm of the cervix Encounter for screening for human papillomavirus (HPV) Special screening examination for human papillomavirus (HPV) Fibroadenosis of right breast Fibroadenosis of breast [facility] Diagnosis Fibroadenosis of right breast- Primary Fibroadenosis of breast [facility] Diagnosis Fibroadenosis of right breast Fibroadenosis of breast [facility] Diagnosis Chronic bilateral low back pain without sciatica- Primary documented in this encounter [facility] for referral (narrative)* Diagnostic Procedure Only (Routine) - Authorized Specialty Diagnoses / Procedures Referred By Oliver t Referred To Contact [facility] Diagnoses Fibroadenosis of right breast Procedures US BREAST LTD RT US BREAST UNI REAL TIME WITH IMAGE LIMITED Yamilet Peralta APRN.RECEIVING OPERATOR [address] [place] [address] [facility] [address] [place] [address] Referral ID Status Reason Start Date Expiration Date Visits Requested Visits Authorized [id number] Authorized Auto-Generat ed Referral 03/04/2022 04/03/2023 1 1 [facility] for referral (narrative)* Diagnostic Procedure Only (Routine) - Pending Review Specialty Diagnoses / Procedures Referred By Oliver t Referred To Contact [facility] Diagnoses Fibroadenosis of right breast Procedures [facility] RT DIAGNOSTIC MAMMOGRAPHY COMPUTER-AIDED DETCJ UNI Yamilet Peralta APRN.RECEIVING OPERATOR [address] [place] [address] [facility] [address] [place] [address] Referral ID Status Reason Start Date Expiration Date Visits Requested Visits Authorized [id number] Pending Review Auto-Generat ed Referral 03/07/2022 04/06/2023 1 1 [facility] for referral (narrative)* Diagnostic Procedure Only (Routine) - Closed Specialty Diagnoses / Procedures Referred By Benjaminac t Referred To Contact [facility] Diagnoses Fibroadenosis of right breast Procedures US BREAST LTD RT US BREAST UNI REAL TIME WITH IMAGE LIMITED Yamilet Peralta APRN.RECEIVING OPERATOR [address] [place] [address] [facility] [address] [place] [address] Referral ID Status Reason Start Date Expiration Date V isits Requested Visits Authorized [id number] Closed Auto-Generate d Referral 03/04/2022 04/03/2023 1 1 [facility] for visit Narrative* Diagnostic Procedure Only (Routine) - Closed Specialty Diagnoses / Procedures Referred By Oliver quinn Referred To Contact [facility] Diagnoses Fibroadenosis of right breast Procedures US BREAST LTD RT US BREAST UNI REAL TIME WITH IMAGE LIMITED Yamilet Peralta APRN.CNP [address] [place] [address] [facility] [address] [place] [address] Referral ID Status Reason Start Date Expiration Date V isits Requested Visits Authorized [id number] Closed Auto-Generate d Referral 03/04/2022 04/03/2023 1 1 [facility] Summary Purpose Family History Coronary Artery Disease Status:Active Comments :Maternal Grandfather. Paternal Grandfather. diabetes-granfather Status:Active Hypertension Status:Active Comments:Father. Coronary Artery Disease Status:Active Comments :Maternal Grandfather. Paternal Grandfather. diabetes-granfather Status:Active Hypertension Status:Active Comments:Father. Coronary Artery Disease Status:Active Comments :Maternal Grandfather. [...] THERAPY EVALUATION HIGH COMPLEX 45 MINS Older, MADELINE SierraN.RECEIVING OPERATOR [address] [place] [address] [facility] [address] [place] [address] Referral ID Status Reason Start Date Expiration Date Visits Requested Visits Authorized [id number] Pending Review Auto-Generat ed Referral 05/13/2022 05/13/2023 1 1 Additional Source Comments INFORMATION SOURCE (unrecogn ized section and content) DATE CREATED AUTHOR AUTHOR'S ORGANIZ ATION 11/17/2020 [facility] Reference Lab DATE CREATED AUTHOR AUTHOR'S ORGANLUC ATION 05/16/2022 [facility] Source Comments (unrecognize d section and content) In the event this informatio n is protected by the Federal Confidentiality of Alcohol and Drug Abuse Patient Records regulations: The Federal rules restrict any use of the information to criminally investigate or prosecute any alcohol or drug abuse patient.[facility] the event this information is protected by the Federal Confidentiality of Alcohol and Drug Abuse Patient Records regulations: The Federal rules restrict any use of the information to criminally investigate or prosecute any alcohol or drug abuse patient.[facility] the event this information is protected by the Federal Confidentiality of Alcohol and Drug Abuse Patient Records regulations: The Federal rules restrict any use of the information to criminally investigate or prosecute any alcohol or drug abuse patient.[facility] the event this information is protected by the Federal Confidentiality of Alcohol and Drug Abuse Patient Records regulations: The Federal rules restrict any use of the information to criminally investigate or prosecute any alcohol or drug abuse patient.[facility] the event this information is protected by the Federal Confidentiality of Alcohol and Drug Abuse Patient Records regulations: The Federal rules restrict any use of the information to criminally investigate or prosecute any alcohol or drug abuse patient.[facility] Reason for Visit (unrecogniz ed section and content) Reason Comments Orders Reason Comments Back Pain LOWER - since having child x 1 year ago Care Teams (unrecognized sec tion and content) 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 [facility]. provides no warranty or guarantee of the accuracy or completeness of information in this document.
[2023-11-30 06:30] LABS: Absolute Neutrophil Count 10.5 X10^3/uL (2.0-7.7); Basophil# 0.03 X10^3/uL; Basophil% 0.2 % (0-1); Eosinophil# 0.03 X10^3/uL; Eosinophils% 0.2 % (0-5); Hematocrit 40.3 % (37-47); Hemoglobin 13.4 g/dL (12.0-15.0); Lymphocyte % 14.3 % (19-41); Mean Corp Hgb Conc 33.3 g/dL (32-36); Mean Corpuscular Hgb 28.9 pg (27.0-32.0); Mean Corpuscular Volume 86.9 fL (81-99); Mean Platelet Vol. 10.3 fl (6.2-12.0); Monocyte# 0.67 X10^3/uL; NRBC Flagged by Analyzer 0 % (0-5); Neutrophil # 10.51 X10^3/uL (2.7-7.7); Neutrophil % 79.1 % (47-70); Platelet Count 204 K/mm3 (150-450); RBC Distribution Width CV 13.8 % (11.6-14.6); RBC Distribution Width SD 43.8 fl (35.1-43.9); Red Blood Count 4.64 M/mm3 (4.2-5.4); White Blood Count 13.3 K/mm3 (4.4-11.0)
--- NOTE | 2023-11-30 06:55 | HP.PCM.OB_ITS ---
HPI - General General Date of Admission: 11/30/23 HPI Narrative RAMBO CRISTOBAL, is a 28 y/o @ 40 weeks 6 days who presents to L&D with SROM and early labor. Maternal Data Information JUDY Calculator Estimated Delivery Date Method Current WG Current Estimate 11/24/23 LMP (Certain) 40w 6d PFSH PFS Medical History Asthma Asthma Extradural hem-mod coma Laceration, obstetrical, second degree Home Medications vits,calcium no.78-iron fumarate-folic acid 29 mg-1 mg tablet 1 tablet PO DAILY 02/09/21 [History Last Taken 04/20/21 09:00] Allergy/AdvReac Type Severity Reaction Status Date / Time bee pollen Allergy Hives Verified 11/24/23 10:39 Family History Grandfather Heart disease Myocardial infarction Sister Benign brain tumor Aunt Breast cancer x3-unsure of genetic testing Grandmother Cancer Surgical History S/P appendectomy S/P tonsillectomy Social History Smoking Status: Former smoker alcohol intake: current details: not while substance use type: former substance user and marijuana caffeine: Yes what type of physical activity do you participate in: none seatbelt use: always do you feel safe at home: Yes additional social history: - Michael History 2 Elective abortions Hx Para 1 Spontaneous abortions Hx # Term Pregnancies Ectopic pregnancies Hx # Pregnancies Multiple births # of living children 1 Past Pregnancies Del. Date Name GA/Weeks Outcome Route Bth Weight Infant Gen Labor Lgth Anesthesia Del Locatn Provider FOB 04/21/21 Luis 40 live - full term 7lbs 5oz Female ep idural [facility] Michael Delivery Date: 04/21/21 Last Updated by: Cher John No issues during or delivery Visit Details Expected Delivery Route/Plan Labor Preferences- CB/BF classes: not interested labor support person: Michael labor intervention preferences: no preferences pain management options preferred: decided at the time. open to epidural cut cord/dad catch: cord : yes PP control planned: discussed discussed possible routes of delivery and associated risks: [] special requests: [] Plans Covid status: unvaccinated Flu vaccine: unvaccinated, declines Tdap vaccine: declines Rhogam: na LARC form signed: yes movement and labor precautions reviewed. Problem list reviewed and updated with the most current plan of care details and appropriate orders placed. Relevant counseling for the gestational age provided. Continue routine care and follow up unless otherwise noted in visit notes/problem list details OB Flowsheet Initial Weight: Not Recorded Date -?-?-?-?-?-?-?-?-?-?-?-?- EGA Weight BP Urine Prot -?-?-?-?-?-?-?-?-?-?-?-?- Glucose FHR FuHt Pres Dilation -?-?-?-?-?-?-?-?-?-?-?-?- Effaced St Visit Note 07/15/23 -?-?-?-?-?-?-?-?-?-?-?-?- 21w 1d 137 lb 8 oz 134/80 Nega tive -?-?-?-?-?-?-?-?-?-?-?-?- Negative -?-?-?-?-?-?-?-?-?-?-?-?- JV- transfer fro [facility]. normal anatomy scan at [facility]. JV- transfer from [facility]. no rmal anatomy scan at [facility]. has an active sinus infection seen by urgent care and they did not give abx. ordering amoxicillin 08/11/23 -?-?-?-?-?-?-?-?-?-?-?-?- 25w 0d 153 lb 8 oz 121/73 -?-?-?-?-?-?-?-?-?-?-?-?- 150 24 -?-?-?-?-?-?-?-?-?-?-?-?- KW- no vb/ctx. g ood fm. Having burning and itching externally after taking ATB. excoriated labia. no changes in discharge. Rx sent 11/07/23 -?-?-?-?-?-?-?-?-?-?-?-?- 28w 0d 152 lb 4 oz 112/64 Nega tive -?-?-?-?-?-?-?-?-?-?-?-?- Negative 148 28 -?-?-?-?-?-?-?-?-?-?-?-?- MH-No VB, LOF. G ood FM. Nl 28 labs. 09/15/23 -?-?-?-?-?-?-?-?-?-?-?-?- 30w 0d 156 lb 6 oz 116/71 Nega tive -?-?-?-?-?-?-?-?-?-?-?-?- Negative 150 29 -?-?-?-?-?-?-?-?-?-?-?-?- KW-no vb/lof/ctx . good fm. no concerns today 09/29/23 -?-?-?-?-?-?-?-?-?-?-?-?- 32w 0d 157 lb 2 oz 112/71 -?-?-?-?-?-?-?-?-?--?-?-?- 145 32 -?-?-?-?-?-?-?-?-?-?-?-?- KW-no vb/lof/reg ular ctx. good fm. 10/13/23 -?-?-?-?-?-?-?-?-?-?-?-?- 34w 0d 157 lb 6 oz Negative -?-?-?-?-?-?-?-?-?-?-?-?- Negative 135 31 -?-?-?-?-?-?-?-?-?-?-?-?- Kw-no vb/lof/ctx . good fm. comfort measures for hemorrhoids. reports decreased appetite. growth US ordered for decreased fundal height. 10/27/23 -?-?-?-?-?-?-?-?-?-?-?-?- 36w 0d 162 lb 8 oz 114/76 Nega tive -?-?-?-?-?-?-?-?-?-?-?-?- Negative 135 33 -?-?-?-?-?-?-?-?-?-?-?-?- MH-No VB, LOF. G ood Fm. US growth 16%. Reviewed kick cts. GBS. 11/03/23 -?-?-?-?-?-?-?-?-?-?-?-?- 37w 0d 160 lb 122/72 Negative -?-?-?-?-?-?-?-?-?-?-?-?- Negative 140 36 -?-?-?-?-?-?-?-?-?-?-?-?- SM- no vb lof go od fm no reuglar ctx discussed hemorrhoids, labor expectations 11/11/23 -?-?-?-?-?-?-?-?-?-?-?-?- 38w 1d 168 lb 4 oz 122/71 Nega tive -?-?-?-?-?-?-?-?-?-?-?-?- Negative 145 37 -?-?-?-?-?-?-?-?-?-?-?-?- LC- no vb/ctx/lo f. good fm. 11/17/23 -?-?-?-?-?-?-?-?-?-?-?-?- 39w 0d 164 lb 131/83 Negative -?-?-?-?-?-?-?-?-?-?-?-?- Negative 140 38 Cephalic 1 -?-?-?-?-?-?-?-?-?-?-?-?- SM- no vb lof go od fm no regular ctx 11/24/23 -?-?-?-?-?-?-?-?-?-?-?-?- 40w 0d 167 lb 2 oz 124/76 Nega tive -?-?-?-?-?-?-?-?-?-?-?-?- Negative 143 37 Cephalic 1 -?-?-?-?-?-?-?-?-?-?-?-?- 50 -3 JV- having contractions, not painful yet. planning 41 week IOL. ROS Constitutional Constitutional: Denies change in weight, fatigue, fever(s), headache(s), poor appetite or weakness Eyes Eyes: Denies blurry vision, change in vision, seeing flashes or spots in vision ENT HEENT: Denies dizziness, headache(s), loss taste/smell or sore throat Cardiovascular Cardiovascular: Denies chest pain, dizziness, dyspnea, irregular heart rhythm, leg edema, palpitations, rapid heart rate or vomiting Respiratory/Chest Respiratory/Chest: Denies chest tightness, cough, dyspnea or breast pain Gastrointestinal Gastrointestinal: Denies abdominal pain, anorexia, constipation, cramping, diarrhea, hemorrhoids, vomiting or weight changes Genitourinary Genitourinary: Denies dysuria, flank pain, genital lesions, genital pain, urinary frequency or urinary urgency Musculoskeletal Musculoskeletal: Denies back pain, difficulty walking, joint pain, limited range of motion, muscle cramps or numbness Integumentary Integumentary: Denies lesions or unusual bruising Neurologic Neurologic: Denies abnormal movements, abnormal speech, dizziness, numbness, seizure-like activity or syncope Psychiatric Psychiatric: Denies anxiety, behavioral changes, change in appetite, change in l ibido, cognitive impairment, confusion, depression, difficulty concentrating, hallucinations or suicidal thoughts Endocrine Endocrinology: Denies excessive sweating, polydipsia or polyuria Hematologic/Lymphatic Hematologic/Lymphatic: Denies easy bleeding, easy bruising or lymphadenopathy Allergic/Immunologic Allergic/Immunologic: Denies itchy eyes, lip swelling, seasonal rhinorrhea, rhinitis, throat swelling, tongue swelling, eczemia, wheezing or asthma Vital Signs Vital Signs Vital Signs: 11/30/23 04:36 11/30/23 04:36 11/30/23 05:09 Pulse Rate 61 Blood Pressure 151/86 H 144/85 H BP Systolic 151 144 BP Diastolic 86 85 11/30/23 05:09 Pulse Rate 62 Blood Pressure BP Systolic BP Diastolic Weight Weight: 172 lb 8 oz Body Mass Index (BMI) 27.8 Physical Exam Const alert, oriented x3, no apparent distress and healthy appearing General Appearance: cooperative; Negative for anxious HEENT normocephalic Face and Sinus: normal facial exam Eyes EOMs intact bilaterally and no scleral icterus General Eye: normal appearance of both eyes Neck full ROM and supple Lymph Lymphatic: no lymphadenopathy noted Chest Chest: abnormal inspection of the chest Resp normal respiratory effort Effort and Inspection: able to speak in complete sentences Cardio regular rate GI soft to palpation and non-tender Inspection: gravid Palpation: soft; Negative for tender external exam normal Amniotic Fluid: ROM+plus Back/Spine no CVA tenderness Extremity normal to inspection, full ROM and no clubbing, cyanosis or edema General Extremity: Negative for calf tenderness or edema Skin Lesions: no lesions Rashes: no rashes Psych mental status grossly normal Labs Labs Labs: Blood Type A POSITIVE Antibody Screen NEGATIVE Hct 40.3 % (37-47) Hgb 13.4 g/dL (12.0-15.0) Obstetrics Ultrasound Syphilis Total Ab Non-reactive VZV IgG Antibody 1236 index (Immune >165) Rubella IgG Antibody Reactive (Nonreactive) Hep Bs Antigen Non-Reactive (Nonreactive) Hepatitis C Antibody Non-Reactive (Nonreactive) HIV 1&2 Antibody Non-Reactive (Nonreactive) Glucose 1 Hr 50 gm 93 mg/dL (70-140) Rhogam given: No Miscellaneous Test Assessment & Plan (1) Uterine size date discrepancy : COMMENT: US EFW 16%-ok; 10/27/23: cx closed, posterior. (2) Fibroadenoma of right breast: (3) Hip pain: COMMENT: due to prior /delivery per patient (4) Chronic back pain: QUALIFIERS: Back pain location: low back pain Back pain laterality: unspecified Sciatica presence: unspecified whether sciatica present Qualified Code(s): M54.50 - Low back pain, unspecified; G89.29 - Other chronic pain COMMENT: due to prior /delivery per patient (5) Supervision of normal : QUALIFIERS: Normal : other normal Trimester: third trimester Qualified Code(s): Z34.83 - Encounter for supervision of other normal , third trimester COMMENT: [id number] JUDY 11/24/23 CHRISTINA Smith (girl) Boy : Michael (6) : QUALIFIERS: Weeks of gestation: 40 weeks Qualified Code(s): Z3A.40 - 40 weeks gestation of COMMENT: Neg GBS. MIKE @21 wks. Nl anatomy. low risk NIPT done at [facility], declined carrier and NTD screen. PLAN: Plan Patient presents IAL, plan expectant management for , pitocin PRN if needed. Pain management: plans epidural if needed GBS neg. Management of any complications: none I have reviewed the [facility] and made any clinically relevant updates.
[2023-11-30 08:35] LABS: Syphilis Antibodies Non-reactive
[2023-11-30] MEDS: 0.9% Saline Lock 10 ML Syringe IV (10:28)
[2023-11-30] MEDS: Lactated Ringers 1,000 ML 200 ML IV (10:31)
[2023-11-30] MEDS: LACTATED RINGERS 500 ML 999 ML IV (10:51)
[2023-11-30] MEDS: fentaNYL-bupivacaine (epidural) 100 ML BAG EPIDURAL (11:22)
[2023-11-30] MEDS: Oxytocin 15 Units/NS 250ml 15 UNITS/250 ML IV.SOLN 2 UNITS IV (12:57)
--- NOTE | 2023-11-30 14:07 | OP.PCM_ITS ---
Assessment & Plan (1) Hemorrhoid: QUALIFIERS: Hemorrhoid type: perianal venous thrombosis Qualified Code(s): K64.5 - Perianal venous thrombosis COMMENT: discussed care. Avoid constipation. Anusol cream and tucks (2) Uterine size date discrepancy : COMMENT: US EFW 16%-ok; 10/27/23: cx closed, posterior. (3) Fibroadenoma of right breast: (4) Hip pain: COMMENT: due to prior /delivery per patient (5) Chronic back pain: QUALIFIERS: Back pain location: low back pain Back pain laterality: unspecified Sciatica presence: unspecified whether sciatica present Qualified Code(s): M54.50 - Low back pain, unspecified; G89.29 - Other chronic pain COMMENT: due to prior /delivery per patient (6) Supervision of normal : QUALIFIERS: Normal : other normal Trimester: third trimester Qualified Code(s): Z34.83 - Encounter for supervision of other normal , third trimester COMMENT: [id number] JUDY 11/24/23 PC Luis (girl) Boy : Michael (7) : QUALIFIERS: Weeks of gestation: 40 weeks Qualified Code(s): Z3A.40 - 40 weeks gestation of COMMENT: Neg GBS. MIKE @21 wks. Nl anatomy. low risk NIPT done at [facility], declined carrier and NTD screen. Maternal Data Information JUDY Calculator Estimated Delivery Date Method Current WG Current Estimate 11/24/23 LMP (Certain) 40w 6d Final JUDY: 11/24/23 Final JUDY Source: LMP Vaginal Delivery Maternal Presentation Maternal Presentation: Active Labor and Spontaneous Rupture of Membranes Type of Induction: Pitocin Operative Information Date of Procedure: 11/30/23 Pre-Operative Diagnosis: 28 y/o @ 40 weeks 6 days, active labor and SROM Post-Operative Diagnosis: 28 y/o @ 40 weeks 6 days, active labor and SROM Surgery / Procedure Performed: Spontaneous Vaginal Delivery Type of Anesthesia: Epidural Drain: Gallagher to straight drain Estimated Blood Loss: 50cc Time of Delivery: 13:30 Findings Description of Procedure: Patient began pushing and delivered the head in the ANGI presentation. The head was delivered atraumatically. The anterior and posterior shoulders delivered without complication followed by the rest of the and the infant was placed on the maternal abdomen. Delayed cord clamping was employed for approximately 60 seconds. Cord was clamped and cut and gentle traction was applied to the cord and the placenta delivered spontaneously immediately following it was noted to be intact with three-vessel cord. The perineum and vagina were inspected and noted to have no laceration. EBL was 50cc. Patient and infant tolerated delivery well. Presentation: Vertex Amniotic Fluid Description: Clear Placental Delivery Description: Spontaneous Cord Vessel Description: 3 Vessels Cord Entanglement: None Infant A Gender: Male (1 minute): 8 (5 minute): 9 Post Vaginal Delivery Medications Given After Delivery: IV Pitocin Episiotomy Description: None Laceration: None Complication Complications: None
--- NOTE | 2023-11-30 14:10 | DCINST_ITS ---
Discharge Instructions Diet Discharge Diet: No restrictions Activity Discharge Activity: Return to Normal Activity, May Not Drive (while taking narcotic pain medications.) and May Shower May resume sexual activity in: 4-6 weeks Dressing / Incision Call your doctor if your incision/area has: Continuous Slow Oozing, Sudden Increased Bleeding, Increased Pain/ Swelling, Increased Redness and Foul Smelling Discharge Follow Up Care Please Follow Up With: Crystal Carvajal, DO When: Call [phone] to make an appointment with your doctor in 6 weeks. If you had elevated blood pressure or 4th degree laceration, you will need to be seen in 2 weeks. Test Results: Test results from this visit will be discussed in further detail at your follow- up appointment, if applicable. Discharge Plan Admission Admit Date/Time: 11/30/23 05:41 Attending Provider: Crystal Carvajal Primary Care Provider: Ankit Huber Discharge Orders/Prescriptions Prescriptions: No Action vit,[id number] 1 TABLET tablet 1 tablet PO DAILY Referrals / Follow Up: Ankit Huber MD [Primary Care Provider] -
[2023-11-30] MEDS: Oxytocin 15 Units/NS 250ml 15 UNITS/250 ML IV.SOLN 83 UNITS IV (15:30)
[2023-11-30] MEDS: Acetaminophen 500 MG Tablet 1000 MG PO (18:18)
[2023-12-01] MEDS: Acetaminophen 500 MG Tablet 1000 MG PO (04:20)
[2023-12-01 04:26] VITALS: BP 148/80; PULSE 61; RESP 18; TEMP 36.8; O2SAT 97
--- NOTE | 2023-12-01 08:05 | PN.OBGYN_ITS ---
Subjective Subjective Patient doing well without complaints. Tolerating PO. Ambulating and voiding without difficulty. Feeding well. Denies chest pain, shortness of breath, calf pain/swelling, fevers, chills, lightheadedness. Objective Data Objective Data Vital Signs: Vital Signs Temp Pulse Resp BP Pulse Ox O2 Del Method 98.3 F 61 18 148/80 H 97 Room Air 12/01/23 04:26 12/01/23 04:26 12/01/23 04:26 12/01/23 04:26 12/01/23 04:26 12/01/23 04:26 Oxygen Delivery Method Room Air Weight: 172 lb 8 oz Body Mass Index (BMI) 27.8 Intake & Output: Intake and Output for Last 24 Hours 11/29/23 11/30/23 12/01/23 23:59 23:59 23:59 Intake Total 1751.1 / 1751.1 Output Total 250 / 250 Balance 1501.1 / 1501.1 Lab / Micro Data Attestation: I reviewed the patient's lab results. 11/30/23 06:15 Labs: Laboratory Results - last 24 hr 11/30/23 06:15: Syphilis Total Ab Non-reactive ROS Constitutional Constitutional: Reports systems reviewed and no addt'l complaints, except as do cumented; Denies anorexia or headache(s) Cardiovascular Cardiovascular: Reports systems reviewed and no addt'l complaints, except as documented; Denies dizziness, dyspnea, nausea or tachypnea Respiratory/Chest Respiratory/Chest: Reports systems reviewed and no addt'l complaints, except as documented; Denies cough, dyspnea, shortness of breath at rest or tachypnea Gastrointestinal Gastrointestinal: Reports systems reviewed and no addt'l complaints, except as documented; Denies abdominal pain, constipation or nausea Genitourinary Genitourinary: Reports systems reviewed and no addt'l complaints, except as documented; Denies burning urination, difficulty urinating, dysuria, urinary frequency or urinary incontinence Musculoskeletal Musculoskeletal: Reports systems reviewed and no addt'l complaints, except as documented Integumentary Integumentary: Reports systems reviewed and no addt'l complaints, except as documented Neurologic Neurologic: Reports systems reviewed and no addt'l complaints, except as documented; Denies abnormal speech, dizziness or headache(s) Psychiatric Psychiatric: Reports systems reviewed and no addt'l complaints, except as documented Endocrine Endocrinology: Reports systems reviewed and no addt'l complaints, except as docu mented Hematologic/Lymphatic Hematologic/Lymphatic: Reports systems reviewed and no addt'l complaints, except as documented Physical Exam Const alert, oriented x3 and no apparent distress Neck full ROM Resp normal respiratory effort, normal air movement and no retractions Effort and Inspection: able to speak in complete sentences and symmetric chest movement GI soft to palpation Bladder / Kidney Exam: bladder normal to palpation Uterus Palpation: uterus fundus firm Extremity normal to inspection and full ROM Psych mental status grossly normal, thought process normal and cooperative Assessment & Plan (1) Vaginal delivery: PLAN: s/p PPD # 1 1. routine post delivery care 2. breast feeding- support given 3. rh positive 4. rubella immune 5. Discharge Home (2) Hemorrhoid: QUALIFIERS: Hemorrhoid type: perianal venous thrombosis Qualified Code(s): K64.5 - Perianal venous thrombosis COMMENT: discussed care. Avoid constipation. Anusol cream and tucks (3) Fibroadenoma of right breast: (4) Hip pain: COMMENT: due to prior /delivery per patient (5) Chronic back pain: QUALIFIERS: Back pain location: low back pain Back pain laterality: unspecified Sciatica presence: unspecified whether sciatica present Qualified Code(s): M54.50 - Low back pain, unspecified; G89.29 - Other chronic pain COMMENT: due to prior /delivery per patient Charges/Coding Multi Select Codes Urinary/Genital Urinary/Genital CPT Codes: No Charge
[2023-12-01 08:44] VITALS: BP 151/86; PULSE 60; RESP 16; TEMP 36.8; O2SAT 98
[2023-12-01] MEDS: Ibuprofen 600 MG Tablet PO (08:59)
[2023-12-01] MEDS: Senna/Docusate Sodium 1 Tablet PO (09:06)
[2023-12-01 11:18] VITALS: BP 126/75
[2023-12-01 14:55] VITALS: BP 100/52; PULSE 61; RESP 16; TEMP 36.6; O2SAT 98
[2023-12-01 16:34] VITALS: BP 131/65; PULSE 66
== END 2023-12-01 18:25 | disposition home or self-care (01) | DRG 806 ==
LOC: WPOUT 05:42 → WP 05:42
PROVIDERS: Advanced Practice Midwife; Admitting Provider Obstetrics & Gynecology; PCP Family Medicine; Visit Provider Obstetrics & Gynecology
DX: O48.0 Post-term pregnancy (principal); Z37.0 Single live birth; O22.43 Hemorrhoids in pregnancy, third trimester; M54.50 Low back pain, unspecified; G89.29 Other chronic pain; O26.843 Uterine size-date discrepancy, third trimester; Z3A.40 40 weeks gestation of pregnancy; O99.892 Other specified diseases and conditions complicating childbirth; Z87.891 Personal history of nicotine dependence
CPT/HCPCS: 59025; 59050; 84112; 85025; 86780; 86850; 86900; 86901; 99221; J7120; A4216; G0378

== ENCOUNTER 2023-12-04 10:10 | Outpatient (CLI) | payer BC, SELFPAY | END 2023-12-04 11:05 | disposition home or self-care (01) | LOC: WPOUT 10:14 → WP 10:15 | PROVIDERS: PCP Family Medicine; Referring Provider Nurse Practitioner Family; Visit Provider Nurse Practitioner Family | DX: O92.79 Other disorders of lactation (principal) | CPT/HCPCS: 96158; 96159 ==

== ENCOUNTER → 2024-09-21 | Outpatient (CLI) | payer OTHER, SELFPAY ==
[2024-09-21 17:14] LABS: Estradiol < 11.0 pg/mL; Luteinizing Hormone 0.6 mIU/mL; T4 Free Direct 0.79 ng/dL (0.76-1.46); Thyroid Stim Hormone (TSH) 0.856 uIU/mL (0.358-3.740)
== END | disposition home or self-care (01) ==
LOC: BWCLAB 15:05
PROVIDERS: PCP Family Medicine; Visit Provider Obstetrics & Gynecology
DX: N95.1 Menopausal and female climacteric states (principal)
CPT/HCPCS: 36415; 82670; 83001; 83002; 84439; 84443